=== PATIENT | female | born 1945 | race Caucasian/White ===

== ENCOUNTER 2018-10-11 18:21 | Emergency (ER) | payer MEDICARE ==
[2018-10-11 18:36] VITALS: BP 161/84
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
[2018-10-11 19:35] LABS: PLATELET COUNT, AUTOMATED 276 K/uL (150-450)
--- NOTE | 2018-10-11 20:54 | EKG ---
[place] [facility] [place] NAME: RAFAT RODRIGUEZ : [id number] MR: [id number] V: [id number] EXAM DATE: ORDERING PHYSICIAN: LEYDI DEGROOT TECHNOLOGIST: SHELLIE Mak Reason : Blood Pressure : / mmHG Vent. Rate : 070 BPM Atrial Rate : 070 BPM P-R Int : 206 ms QRS Dur : 096 ms QT Int : 402 ms P-R-T Axes : 072 -18 083 degrees QTc Int : 434 ms Artifact makes interpretation difficult - recommend repeat EKG Probable sinus rhythm with PVCs Left axis Abnormal ECG No previous ECGs available Confirmed by RUBIO ABEBE ([id number]) on 10/12/2018 3:14:17 AM Referred By: Confirmed By:RUBIO ABEBE
[2018-10-11] MEDS ORDERED: DILT-104 PO (21:11)
[2018-10-11] MEDS ORDERED: IRBE150T7 PO (21:11)
[2018-10-11] MEDS ORDERED: HALO5TAB17 PO (21:11)
[2018-10-11] MEDS ORDERED: ASPI-1471 PO (21:11)
[2018-10-11] MEDS ORDERED: SODCTAB PO (21:11)
[2018-10-11] MEDS ORDERED: OMEP-125 PO (21:11)
[2018-10-11] MEDS ORDERED: METO50TA19 PO (21:11)
[2018-10-11] MEDS ORDERED: CETI10CA8 PO (21:11)
[2018-10-12] MEDS ORDERED: OXYB5TAB86 PO (10:00)
[2018-10-12] MEDS ORDERED: CARB15DR72 OU (13:52)
[2018-10-12] MEDS ORDERED: CALC-852 PO (13:52)
[2018-10-12] MEDS ORDERED: MOMR ENA (13:52)
[2018-10-12] MEDS ORDERED: [UNRECOGNIZED DRUG - CODE] PO (13:52)
[2018-10-12] MEDS ORDERED: ACET500T68 PO (13:52)
== END 2018-10-11 21:31 ==
LOC: ER 18:44
DX: F20.0 Paranoid schizophrenia (principal); R94.31 Abnormal electrocardiogram [ECG] [EKG]
CPT/HCPCS: 36415; 80305; 81001; 83735; 84443; 85025; 93005; 99284; G0480; 80320; 80329; 82040; 82247; 82310; 82374; 82435; 82565; 82947; 84075; 84132; 84155; 84295; 84450; 84460; 84520

== ENCOUNTER 2018-10-11 21:19 | Inpatient (IN) | payer MEDICARE ==
[~2018-10-11] VITALS: Ht 167.6 cm; Wt 95.7 kg
[~2018-10-11 21:19] MED LIST: ASPI-1471 PO; CETI10CA8 PO; DILT-104 PO; HALO5TAB17 PO; IRBE150T7 PO; METO50TA19 PO; OMEP-125 PO; SODCTAB PO
[2018-10-11 23:06] VITALS: BP 138/90
[2018-10-12 06:47] VITALS: BP 132/84
[2018-10-12] MEDS ORDERED: CETIRIZINE HCL 10 MG TAB PO PRN (07:45)
[2018-10-12] MEDS: PANTOPRAZOLE SOD 20 MG TABEC PO SCH ×2 (08:22→09:00)
[2018-10-12] MEDS: DILTIAZEM CD 180 MG CAPCR PO SCH ×2 (08:23→21:10)
[2018-10-12] MEDS: SODIUM CHLORIDE 1 GR TAB PO SCH ×2 (08:25→21:10)
[2018-10-12] MEDS: HALOPERIDOL 5 MG TAB PO SCH (08:27)
[2018-10-12] MEDS ORDERED: IRBESARTAN 150 MG TAB PO SCH (09:00)
[2018-10-12] MEDS ORDERED: OXYB5TAB86 PO (10:00)
[2018-10-12] MEDS ORDERED: IBUPROFEN 600 MG TAB PO PRN (10:55)
[2018-10-12 11:03] VITALS: BP 128/90
[2018-10-12] MEDS ORDERED: CALC-852 PO (13:52)
[2018-10-12] MEDS ORDERED: MOMR ENA (13:52)
[2018-10-12] MEDS ORDERED: [UNRECOGNIZED DRUG - CODE] PO (13:52)
[2018-10-12] MEDS ORDERED: CARB15DR72 OU (13:52)
[2018-10-12] MEDS ORDERED: ACET500T68 PO (13:52)
[2018-10-12] MEDS: OXYBUTYNIN CHL 5 MG TAB PO SCH (14:00)
[2018-10-12] MEDS ORDERED: HALOPERIDOL 5 MG TAB PO SCH ×2 (14:00→21:00)
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
--- NOTE | 2018-10-12 18:33 | EKG ---
FACILITY: [facility] PATIENT NAME: RAFAT RODRIGUEZ : [id number] MR: [id number] V: [id number] EXAM DATE: ORDERING PHYSICIAN: REY FRANCISCO TECHNOLOGIST: JORDAN Mak Reason : Blood Pressure : / mmHG Vent. Rate : 058 BPM Atrial Rate : 058 BPM P-R Int : 206 ms QRS Dur : 102 ms QT Int : 442 ms P-R-T Axes : 074 066 086 degrees QTc Int : 433 ms Sinus bradycardia with premature ventricular complexes or fusion complexes Otherwise normal ECG When compared with ECG of 11-OCT-2018 20:45, Previous ECG has undetermined rhythm, needs review Confirmed by JANEE ZAVALETA ([id number]) on 10/12/2018 6:40:13 PM Referred By: Confirmed By:JANEE ZAVALETA
[2018-10-12] MEDS ORDERED: METOPROLOL SUCC XL 50 MG TABCR 50 MG TAB.ER.24H PO SCH ×2 (21:00)
[2018-10-12 22:59] VITALS: BP 132/80
[2018-10-13] MEDS ORDERED: POLYETHYLENE GLYCOL 17 GM PKT PO ONE (07:20)
[2018-10-13] MEDS: DILTIAZEM CD 180 MG CAPCR PO SCH (08:12)
[2018-10-13] MEDS: HALOPERIDOL 5 MG TAB PO SCH (08:13)
[2018-10-13] MEDS: OXYBUTYNIN CHL 5 MG TAB PO SCH (08:13)
[2018-10-13] MEDS: SODIUM CHLORIDE 1 GR TAB PO SCH (08:14)
[2018-10-13] MEDS: PANTOPRAZOLE SOD 20 MG TABEC PO SCH (08:14)
--- NOTE | 2018-10-13 09:26 | BHS Progress Note ---
BHS - Subjective Progress Notes Subjective "I wanted to stay an extra day to see how the bladder medication works. It works good. I've been on Haldol and it works perfect." Sleep sufficient, denies racing thoughts, AVH Denies depression, anxiety or anger, denies mood swings Denies urge for harm to self or others Suicidal Ideation: None Homicidal Ideation: None BHS - Objective Physical Exam Vital Signs Allergies Coded Allergies TAWNYA Inhibitors (Verified Allergy, Intermediate, 10/12/18) Penicillins (Verified Allergy, Intermediate, 10/12/18) Sulfa (Sulfonamide Antibiotics) (Verified Allergy, Intermediate, 10/12/18) canola oil (Verified Allergy, Intermediate, 10/12/18) levofloxacin (Verified Allergy, Intermediate, 10/12/18) lurasidone (Verified Allergy, Intermediate, 10/12/18) milk (Verified Allergy, Intermediate, 10/12/18) Uncoded Allergies ANTIHISTAMINES ( Allergy, Intermediate, 10/11/18) "STRONG ANTIHISTAMINES" Lab Current Medications Medications (Trade) Dose Ordered Sig/Maged Route PRN Reason Start Time Stop Time Status Last Admin Dose Admin Metoprolol Succinate (Toprol Xl(*) 50 Mg Tabcr (Or Equiv)) 50 mg DAILY@0000 PO 10/12/18 00:00 10/12/18 08:03 DC 10/12/18 00:00 Pantoprazole Sodium (Protonix (Or Equiv)) 20 mg QDAY PO 10/12/18 07:30 11/11/18 07:29 10/13/18 08:14 Diltiazem HCl (Cardizem Cd 180 Mg Capcr (Or Equiv)) 180 mg BID PO 10/12/18 09:00 11/11/18 08:59 10/13/18 08:12 Cetirizine HCl (zyrTEC 10 MG TAB (OR EQUIV)) 10 mg QDAY PRN PO ALLERGY SYMPTOMS 10/12/18 07:45 11/11/18 07:44 Metoprolol Succinate (Toprol Xl(*) 50 Mg Tabcr (Or Equiv)) 50 mg QHS PO 10/12/18 21:00 11/11/18 20:59 10/12/18 21:10 Sodium Chloride (Sodium Chloride 1 Gr Tab) 1 gm BID PO 10/12/18 09:00 11/11/18 08:59 1/19/19 08:14 Irbesartan (Avapro 150 Mg Tab (Or Equiv)) 150 mg QDAY PO 10/12/18 09:00 10/12/18 11:36 DC 10/12/18 08:24 Haloperidol (Haldol(*) 5 Mg Tab (Or Equiv)) 5 mg QHS PO 10/12/18 21:00 11/11/18 20:59 10/12/18 21:10 Haloperidol (Haldol(*) 5 Mg Tab (Or Equiv)) 2.5 mg QAM PO 10/12/18 09:00 11/11/18 08:59 10/13/18 08:13 Haloperidol (Haldol(*) 5 Mg Tab (Or Equiv)) 2.5 mg DAILY@1400 PO 10/12/18 14:00 11/11/18 13:59 10/12/18 14:00 Ibuprofen (Motrin (*) 600 Mg Tab (Or Equiv)) 600 mg Q6H PRN PO PAIN 10/12/18 10:55 11/11/18 10:54 10/12/18 11:28 Irbesartan (Avapro 150 Mg Tab (Or Equiv)) 150 mg QDAY@1100 PO 10/13/18 11:00 11/11/18 08:59 Oxybutynin Chloride (Ditropan (Or Equiv)) 5 mg DAILY PO 10/12/18 14:00 11/11/18 13:59 10/13/18 08:13 Polyethylene Glycol (Miralax 17 Gm Pkt (Or Equiv)) 17 gm ONCE ONCE PO 10/13/18 07:20 10/13/18 07:28 DC 10/13/18 07:48 Vital Signs Date Time Temp Pulse Resp B/P (MAP) Pulse Ox O2 Delivery O2 Flow Rate FiO2 10/12/18 22:59 98.5 93 15 132/80 (97) 94 Room Air S Assessment and Plan [id number] Encounter Date: Oct 13, 2018 [id number] Encounter Time: 09:22 Problems: (1) Paranoid schizophrenia Status: Chronic (2) Bladder spasm Status: Acute Condition Discharge to home Discharge medications per medication management Crisis line # provided, encourage use for worsening s/s Return to ER for worsening s/s, SI/BEATRIZ CHAVEZ SENIOR BUSINESS PROCESS ANALYST Oct 13, 2018 09:26
[2018-10-13 10:40] VITALS: BP 110/50
[2018-10-13] MEDS ORDERED: IRBESARTAN 150 MG TAB PO SCH (11:00)
--- NOTE | 2018-10-14 01:29 | ROMSA DISCHARGE ---
DATE OF ADMISSION: October 11, 2018 DATE OF DISCHARGE: October 13, 2018 ATTENDING PROVIDER SONIA Garcia FINAL DIAGNOSES PER DIAGNOSTIC AND STATISTICAL MANUAL OF MENTAL DISORDERS, FIFTH EDITION 1. Schizophrenia with recent mild exacerbation of psychosis. 2. Problems related to social stressors of recently relocating and ongoing delusional content. REASON FOR ADMISSION/BRIEF HISTORY This patient is a 73-year-old, , female with a long-standing history of schizophrenia who presented to the Emergency Department voluntarily verbalizing what appeared to be multiple solidified delusions of persecutory type. Patient with known history of schizophrenia and currently stabilized on Haldol, which she has taken for an unknown amount of time. Patient reported recently moving from [place] where she had lived for quite some time to the [facility]. She reports that she had some issues with "drug addicts" in [place] which were interfering with her life, and she had to leave that town. Patient has established primary care and psychiatric appointments upon relocating and secured a new [facility] apartment. She reports a good support system through her [employer], [facility], and did report a history previous inpatient psychiatric hospitalizations, up to five in the [place] area. Patient denies history of suicide attempts, although reports previous suicidal ideation. Patient was requesting a voluntary admission for some mild exacerbation of underlying psychotic symptoms. She was polite and cooperative with staff and throughout her stay. She describes some persecutory type delusional thoughts. Patient was continued on her previous medications and was stabilized with outpatient appointments established prior to her discharge. At the time of her discharge interview, she is denying depression, anger, or anxiety. She reports good response from her Haldol. She denies current symptoms of auditory or visual hallucinations or paranoia. She is denying suicidal or homicidal ideation. She has outpatient medical and psychiatric appointments that have been established, and she is appropriate for ongoing outpatient care. She is not considered a risk to herself or others at the time of discharge. PHYSICAL EXAMINATION Please see emergency room notes for physical exam. Vital signs at the time of admission included temperature of 97.9, pulse of 67, blood pressure 138/90, pulse oximetry 93% on room air. Vital signs at the time of discharge include temperature of 98.5, pulse of 93, respiratory rate 15, blood pressure 132/80, pulse oximetry 94% on room air. LABORATORY DATA CBC within normal limits. Chemistry panel within normal limits. Sodium is 130, which she reports chronic hyponatremia with prescribed supplements, chloride 95, AST slightly elevated at 90, ALT slightly elevated at 136, alkaline phosphatase 142. Urine screen within normal limits. Toxicology includes salicylate level of 22, acetaminophen level 10, serum alcohol level less than 10. Urine screen negative for opiates, barbiturates, tricyclics, phencyclidine, amphetamines, benzodiazepines, cocaine, and cannabinoids. MENTAL STATUS EXAMINATION GENERAL APPEARANCE, BEHAVIOR, AND ATTITUDE: Patient is calm, cooperative during her discharge interview. There are no periods of tearfulness. She was smiling and interacting well with team members at time of discharge interview. No psychomotor agitation or retardation. SPEECH: Regular rate, rhythm, volume, tone. MOOD: Euthymic. AFFECT: Minimally constricted, mood congruent. THOUGHT PROCESSES: Logical, goal directed. No loose associations or flight of ideas. THOUGHT CONTENT: Free of auditory or visual hallucinations, ideas of reference, thought broadcastings. No delusional content evident at time of discharge interview. Denies adamantly suicidal or homicidal ideation. SENSORIUM: Clear. COGNITION: Alert and oriented to person, place, time, situation. MEMORY: Immediate, recent, remote intact. INTELLIGENCE: Average based on interview. INSIGHT AND JUDGMENT: Considered intact. Patient agreeable with ongoing outpatient medication continuation with established primary care and psychiatric medications made prior to discharge. RESULTS OF TESTING The patient was seen in the Emergency Department during her behavioral health stay, reporting difficult urination and abdominal discomfort. They did a bladder scan which showed minimal urine and catheterized her which did not yield much residual urine volume. CT of the abdomen and pelvis was performed. There was dilation of the intra- and extrahepatic biliary ducts which may be related to the prior cholecystectomy. Adrenals, pancreas negative. There is a tiny cortical hypodensity lower pole of the left kidney which statistically represented a cyst, although it is too small to characterize. The bladder is mostly decompensated, not ideally evaluated. Patient is agreeable with ongoing outpatient medical care which has been established. CONSULTATIONS Please see emergency room documentation for consultation regarding abdominal pain. TREATMENT Patient participated in individual and group therapy. She was continued on her outpatient medications. She was calm, cooperative, and appropriate for ongoing outpatient care. She is denying suicidal or homicidal ideation. She is encouraged to use the crisis line should symptoms worsen or for suicidal ideation. She is to take medications only as prescribed. She is to abstain from alcohol and all illicit substances. She is encouraged to follow up with outpatient medical provider and psychiatric care followup which has been established prior to discharge. Patient was scheduled for mental health followup at [facility] with appointment set up prior to discharge. She is to return to the Emergency Room for suicidal or homicidal ideation. DISCHARGE MEDICATIONS 1. Avapro 150 mg one p.o. daily. 2. Haldol 2.5 mg one p.o. a.m. and at noon. 3. Haldol 5 mg one p.o. at bedtime. 4. Toprol XL 50 mg p.o. at bedtime. 5. Ditropan 5 mg one p.o. daily. 6. Cardizem 180 mg one p.o. b.i.d. 7. Zyrtec 10 mg one p.o. daily as needed for allergies. 8. Protonix 20 mg one p.o. daily. Patient agreeing to return to the Emergency Room for suicidal or homicidal ideation or worsening symptoms. Patient is competent and agreeable with the above discharge plan and verbalizes understanding of discharge treatment recommendations. [id number]
== END 2018-10-13 10:15 | disposition home or self-care (01) | DRG 885 ==
LOC: BHS 21:19
PROVIDERS: ADMIT Psychiatry & Neurology Psychiatry; ATTEND Psychiatry & Neurology Psychiatry
DX: F20.9 Schizophrenia, unspecified (principal); E87.1 Hypo-osmolality and hyponatremia; Z81.1 Family history of alcohol abuse and dependence; Z81.8 Family history of other mental and behavioral disorders; Z88.0 Allergy status to penicillin; Z88.2 Allergy status to sulfonamides; Z88.8 Allergy status to other drugs, medicaments and biological substances; Z91.011 Allergy to milk products; Z90.49 Acquired absence of other specified parts of digestive tract; Z62.819 Personal history of unspecified abuse in childhood
CPT/HCPCS: 36415; 80305; 80320; 80329; 81001; 82040; 82247; 82310; 82374; 82435; 82565; 82947; 83735; 84075; 84132; 84155; 84295; 84443; 84450; 84460; 84520; 85025; 93005; 99284

== ENCOUNTER 2018-10-12 08:36 | Emergency (ER) | payer MEDICARE ==
[2018-10-12 08:37] VITALS: BP 143/81
--- NOTE | 2018-10-12 08:58 | ER Report ---
History and Physical Time Seen By MD: 08:56 Hx. of Stated Complaint: ABD PAIN STARTED AT 0300, SENT FROM [facility] FOR EVAL HPI/ROS CHIEF COMPLAINT: Abdominal pain, referred from behavioral medicine HISTORY OF PRESENT ILLNESS: Patient is a 73-year-old female who was admitted for disorganized and paranoid thinking last evening. Please see the note from or specifics of that evaluation. Essentially patient states that she is being monitored by the [facility] and at times a minute typical for her to urinate. There was some concern on the floor this evening because when she complained of some abdominal discomfort that he felt a mass in her lower abdomen. They did a bladder scan which showed minimal urine and even into the catheterization which did not yield much urine volume. Because of the concerns for an abdominal mass she is referred to the emergency department for evaluation. REVIEW OF SYSTEMS: Respiratory: No cough, no dyspnea. Cardiovascular: No chest pain, no palpitations. Gastrointestinal: Abdominal discomfort : Difficulty urinating Musculoskeletal: No back pain. Allergies: Coded Allergies: TAWNYA Inhibitors (Verified Allergy, Intermediate, 10/12/18) Penicillins (Verified Allergy, Intermediate, 10/12/18) Sulfa (Sulfonamide Antibiotics) (Verified Allergy, Intermediate, 10/12/18) canola oil (Verified Allergy, Intermediate, 10/12/18) levofloxacin (Verified Allergy, Intermediate, 10/12/18) lurasidone (Verified Allergy, Intermediate, 10/12/18) milk (Verified Allergy, Intermediate, 10/12/18) Uncoded Allergies: ANTIHISTAMINES (Allergy, Intermediate, 10/11/18) "STRONG ANTIHISTAMINES" Home Meds Active Scripts Oxybutynin Chloride (OXYBUTYNIN CHLORIDE) 5 Mg Tablet, 5 MG PO QDAY, #30 TAB 0 Refills Prov:JACK STANLEY MD 10/12/18 Reported Medications Cetirizine Hcl (ZYRTEC) 10 Mg Capsule, 10 MG PO QDAY, CAPSULE 10/11/18 Aspirin (ASPIR 81) 81 Mg Tablet.dr, 81 MG PO QDAY, TAB 10/11/18 Sodium Chloride (SODIUM CHLORIDE) 1 Gm Tab, 1 GM PO BID, TAB 10/11/18 Haloperidol (HALOPERIDOL) 5 Mg Tablet, 5 MG PO QHS 10/11/18 Irbesartan (IRBESARTAN) 150 Mg Tablet, 150 MG PO QDAY 10/11/18 Diltiazem Hcl (CARTIA XT) 180 Mg Cap.er.24h, 180 MG PO BID 10/11/18 Omeprazole (OMEPRAZOLE) 20 Mg Capsule.dr, 1 CAP PO QDAY, CAP 10/11/18 Metoprolol Succinate (METOPROLOL SUCCINATE) 50 Mg Tab.er.24h, 1 TAB PO QHS, TAB 10/11/18 Past Medical/Surgical History Hypertension, schizophrenia Hx Smoking: No Smoking Status: Never Smoker Exposure to Second Hand Smoke?: No Hx Substance Use Disorder: No Hx Alcohol Use: No Constitutional Vital Sign - Last 24 Hours 10/12/18 10/12/18 10/12/18 10/12/18 08:37 09:15 09:30 09:45 Temp 97.9 Pulse 46 54 55 59 Resp 14 B/P (MAP) 143/81 Pulse Ox 95 94 91 92 O2 Delivery Room Air 10/12/18 10:00 Pulse 60 Pulse Ox 90 Physical Exam General Appearance: The patient is alert, has no immediate need for airway protection and no current signs of toxicity. Eyes: Pupils equal and round no injection. Respiratory: Chest is non tender, lungs are clear to auscultation. Cardiac: regular rate and rhythm Gastrointestinal: Abdomen is protuberant Musculoskeletal: Neck: Neck is supple and non tender. Extremities have full range of motion and are non tender. Psych : Patient cooperative Medical Decision Making EKG/Imaging Imaging EXAM DATE: ORDERING PHYSICIAN: JACK STANLEY TECHNOLOGIST: Location: [facility] Patient: Radha Zuniga : 1945 Visit/Account:[id number] Date of Sevice: 10/12/2018 CT ABDOMEN PELVIS W/ CON HISTORY: abdominal swelling, difficulty urinating TECHNIQUE: Following administration of IV contrast contiguous axial images acquired through the abdomen/pelvis. Coronal and sagittal reformatting also performed.Dose Lowering Technique One of the following dose optimization techniques was utilized in the performance of this exam: Automated exposure control; adjustment of the mA and/or kV according to the patient's size; or use of an iterative reconstruction technique. Specific details can be referenced in the facility's radiology CT exam operational policy. CONTRAST: 75 mL Isovue-370 COMPARISON: None. FINDINGS: Visualized lung bases: Negative. Hepatobiliary: There appears to been a cholecystectomy. There is dilatation of the intrahepatic and extrahepatic ducts . The common bile duct measures 8 mm at the head the pancreas. Spleen: Calcified granulomas Adrenals: Negative. Pancreas: Negative. Kidneys ureters or bladder: There is a tiny cortical hypodensity lower pole the left kidney which statistically represents a cyst although is too small to characterize. The bladder is mostly decompressed separate not ideally evaluated Genitalia: The uterus is dextroverted with a lobular contour which may be related to fibroids or other uterine masses GI: Surgical clips adjacent to the cecum likely related to prior appendectomy. There is a moderate amount of fecal material seen throughout colon which can be seen with constipation. Vessels/spaces/nodes: There shotty retroperitoneal lymph nodes Bones/soft tissues: There is a tiny umbilical hernia containing fat. There are spondylotic changes in the thoracolumbar spine Additional findings: None pertinent. IMPRESSION: There is dilatation of the intra and extrahepatic biliary ducts which may be related to the prior cholecystectomy. If patient has symptoms suggesting biliary obstruction and MRCP may be helpful Uterus has a lobular contour which may be related to fibroids or other uterine masses. If this is of clinical concern pelvic ultrasound recommended Moderate amount of fecal material throughout colon which can be seen with constipation Tiny umbilical hernia containing fat Shotty retroperitoneal lymph nodes Spondylotic changes of the thoracolumbar spine Report Dictated By: Renetta Rosenthal MD at 10/12/2018 9:25 AM Report E-Signed By: Renetta Rosenthal MD at 10/12/2018 9:33 AM WSN:[email or web address] ED Course/Re-evaluation ED Course 10/12/2018 9:00:44 am plan at this time will be contrast enhanced CT of the abdomen and pelvis. Decision to Disposition Date: Oct 12, 2018 Decision to Disposition Time: 09:59 Depart Departure Latest Vital Signs Vital Signs Date Time Temp Pulse Resp B/P (MAP) Pulse Ox O2 Delivery O2 Flow Rate FiO2 10/12/18 10:00 60 90 10/12/18 08:37 97.9 14 143/81 Room Air Impression: Primary Impression: Uterine fibroid Additional Impression: Bladder spasm Condition: Condition Unchanged Disposition: HOME OR SELF-CARE Referrals: ELI DOYLE MD Make a follow-up visit for evaluation of fever and fibroids New Scripts Oxybutynin Chloride (OXYBUTYNIN CHLORIDE) 5 Mg Tablet 5 MG PO QDAY, #30 TAB 0 Refills Prov: JACK STANLEY MD 10/12/18 Patient Instructions: Overactive Bladder (GEN), Uterine Fibroids (ED) Problem Qualifiers Primary Impression: Uterine fibroid Uterine leiomyoma location: unspecified location Qualified Codes: D25.9 - Leiomyoma of uterus, unspecified JACK STANLEY MD Oct 12, 2018 08:58
[2018-10-12] MEDS ORDERED: IOPAMIDOL 76% 100 ML INFUS BTL 100 ML ONE (09:02)
--- NOTE | 2018-10-12 09:41 | RADIOLOGY IMAGING REPORT ---
[place] [facility] [place] Radha Zuniga : 1945 MR: [id number] V: [id number] EXAM DATE: ORDERING PHYSICIAN: JACK STANLEY TECHNOLOGIST: Location: Patient: Radha Zuniga : 1945 Visit/Account:[id number] Date of Sevice: 10/12/2018 CT ABDOMEN PELVIS W/ CON HISTORY: abdominal swelling, difficulty urinating TECHNIQUE: Following administration of IV contrast contiguous axial images acquired through the abdom en/pelvis. Coronal and sagittal reformatting also performed.Dose Lowering Technique One of the following dose optimization techniques was utilized in the performance of this exam: Autom ated exposure control; adjustment of the mA and/or kV according to the patient's size; or use of an i terative reconstruction technique. Specific details can be referenced in the facility's radiology C T exam operational policy. CONTRAST: 75 mL Isovue-370 COMPARISON: None. FINDINGS: Visualized lung bases: Negative. Hepatobiliary: There appears to been a cholecystectomy. There is dilatation of the intrahepatic and extrahepatic ducts . The common bile duct measures 8 mm at the head the pancreas. Spleen: Calcified granulomas Adrenals: Negative. Pancreas: Negative. Kidneys ureters or bladder: There is a tiny cortical hypodensity lower pole the left kidney which sta tistically represents a cyst although is too small to characterize. The bladder is mostly decompress ed separate not ideally evaluated Genitalia: The uterus is dextroverted with a lobular contour which may be related to fibroids or oth er uterine masses GI: Surgical clips adjacent to the cecum likely related to prior appendectomy. There is a moderate amount of fecal material seen throughout colon which can be seen with constipation. Vessels/spaces/nodes: There shotty retroperitoneal lymph nodes Bones/soft tissues: There is a tiny umbilical hernia containing fat. There are spondylotic changes in the thoracolumbar spine Additional findings: None pertinent. IMPRESSION: There is dilatation of the intra and extrahepatic biliary ducts which may be related to the prior cho lecystectomy. If patient has symptoms suggesting biliary obstruction and MRCP may be helpful Uterus has a lobular contour which may be related to fibroids or other uterine masses. If this is of clinical concern pelvic ultrasound recommended Moderate amount of fecal material throughout colon which can be seen with constipation Tiny umbilical hernia containing fat Shotty retroperitoneal lymph nodes Spondylotic changes of the thoracolumbar spine Report Dictated By: Renetta Rosenthal MD at 10/12/2018 9:25 AM Report E-Signed By: Renetta Rosenthal MD at 10/12/2018 9:33 AM WSN:[email or web address]
[2018-10-12] MEDS ORDERED: OXYB5TAB86 PO (10:00)
[2018-10-12] MEDS ORDERED: CALC-852 PO (13:52)
[2018-10-12] MEDS ORDERED: MOMR ENA (13:52)
[2018-10-12] MEDS ORDERED: CARB15DR72 OU (13:52)
[2018-10-12] MEDS ORDERED: ACET500T68 PO (13:52)
[2018-10-12] MEDS ORDERED: [UNRECOGNIZED DRUG - CODE] PO (13:52)
== END 2018-10-12 10:11 ==
LOC: ER 09:01
DX: D25.9 Leiomyoma of uterus, unspecified (principal); N32.89 Other specified disorders of bladder
CPT/HCPCS: 74177; 99284; Q9967

== ENCOUNTER 2018-11-03 07:27 | Emergency (ER) | payer MEDICARE ==
[~2018-11-03 07:27] MED LIST changes: -LORA-1455 PO
--- NOTE | 2018-11-03 07:32 | ER Report ---
History and Physical Time Seen By MD: 07:32 HPI/ROS CHIEF COMPLAINT: Chest pressure HISTORY OF PRESENT ILLNESS: Patient is a 73-year-old female here with complaints of chest pressure since yesterday morning. Symptoms have been constant, nonradi ating, located in the midsternal distribution. Patient is anxious appearing and is a history of anxiety. Denies prior history of ACS. Denies productive cough. REVIEW OF SYSTEMS: Constitutional: No fever, no chills. Eyes: No discharge. ENT: No sore throat. Cardiovascular: + chest pressure no palpitations. Respiratory: No cough, no shortness of breath. Gastrointestinal: No abdominal pain, no vomiting. Genitourinary: No hematuria. Musculoskeletal: No back pain. Skin: No rashes. Neurological: No headache. Psychiatry: Anxious appearing Allergies: Coded Allergies: TAWNYA Inhibitors (Verified Allergy, Intermediate, 11/03/18) Penicillins (Verified Allergy, Intermediate, 11/03/18) Sulfa (Sulfonamide Antibiotics) (Verified Allergy, Intermediate, 11/03/18) canola oil (Verified Allergy, Intermediate, 11/03/18) levofloxacin (Verified Allergy, Intermediate, 11/03/18) lurasidone (Verified Allergy, Intermediate, 11/03/18) milk (Verified Allergy, Intermediate, 11/03/18) Uncoded Allergies: ANTIHISTAMINES (Allergy, Intermediate, 10/11/18) "STRONG ANTIHISTAMINES" Home Meds Active Scripts Lorazepam (ATIVAN) 0.5 Mg Tablet, 0.5 MG PO Q4-6H, #10 TAB Prov:CALLI CONTRERAS S DO 11/03/18 Reported Medications Acetaminophen (TYLENOL EXTRA STRENGTH) 500 Mg Tablet, 1000 MG PO BID, TAB Pt. states she takes 2 tabs QAM and QPM 10/12/18 Carboxymethylcellulose Sodium (REFRESH TEARS) 15 Ml Drops, 1-2 DROP OU PRN 10/12/18 Mometasone Furoate (NASONEX) 17 Gm [place], 17 GM JUANIS PRN, SPRAY 10/12/18 Multivitamins-Min/Fa/Ginkgo (ONE DAILY WOMEN 50 PLUS TAB) 1 Each Tablet, 1 EACH PO QDAY 10/12/18 Calcium Carbonate/Vitamin D3 (CALCIUM + VITAMIN D TABLET) 1 Each Tablet, 1 EACH PO QDAY 10/12/18 Cetirizine Hcl (ZYRTEC) 10 Mg Capsule, 1-2 TAB PO QDAY for prn, CAPSULE 10/11/18 Aspirin (ASPIR 81) 81 Mg Tablet.dr, 81 MG PO QDAY, TAB 10/11/18 Sodium Chloride (SODIUM CHLORIDE) 1 Gm Tab, 1 GM PO BID, TAB 10/11/18 Haloperidol (HALOPERIDOL) 5 Mg Tablet, 5 MG PO QHS PT. takes 1/2 a tab in the morning and afternoon. Takes a full tab at bedtime. 10/11/18 Irbesartan (IRBESARTAN) 150 Mg Tablet, 150 MG PO QDAY AVAPRO. TAKE DAILY AT 11AM 10/11/18 Diltiazem Hcl (CARTIA XT) 180 Mg Cap.er.24h, 180 MG PO BID 10/11/18 Omeprazole (OMEPRAZOLE) 20 Mg Capsule.dr, 1 CAP PO QDAY, CAP 10/11/18 Metoprolol Succinate (METOPROLOL SUCCINATE) 50 Mg Tab.er.24h, 1 TAB PO QHS, TAB 10/11/18 Discontinued Scripts Oxybutynin Chloride (OXYBUTYNIN CHLORIDE) 5 Mg Tablet, 5 MG PO QDAY, #30 TAB 0 Refills Prov:JACK STANLEY MD 10/12/18 Hx Smoking: No Smoking Status: Never Smoker Exposure to Second Hand Smoke?: No Hx Substance Use Disorder: No Hx Alcohol Use: No Constitutional Vital Sign - Last 24 Hours 11/03/18 11/03/18 11/03/18 11/03/18 07:27 07:31 07:32 07:40 Temp 98.1 Pulse 67 70 Resp 18 B/P (MAP) 147/71 (96) 147/71 150/83 (105) Pulse Ox 92 99 O2 Delivery Room Air Room Air 11/03/18 11/03/18 11/03/18 11/03/18 08:00 08:05 08:09 08:20 Pulse 61 66 Resp 13 B/P (MAP) 131/80 (97) 124/70 (88) Pulse Ox 93 O2 Delivery Room Air 11/03/18 11/03/18 11/03/18 11/03/18 08:35 08:40 08:45 09:20 Pulse 59 58 Resp 13 23 B/P (MAP) 119/72 (88) 139/71 (93) Pulse Ox 93 91 O2 Delivery Room Air Room Air 11/03/18 11/03/18 11/03/18 11/03/18 09:23 09:28 09:40 09:55 Pulse 62 69 66 Resp 12 19 17 B/P (MAP) 136/49 (78) Pulse Ox 91 94 94 O2 Delivery Room Air Room Air Room Air Physical Exam General Appearance: The patient is alert, has no immediate need for airway protection and no signs of toxicity. No acute distress anxious. Eyes: Pupils equal and round no pallor or injection. ENT, Mouth: Mucous membranes are moist. Respiratory: There are no retractions, lungs are clear to auscultation. Cardiovascular: Regular rate and rhythm. Gastrointestinal: Abdomen is soft and non tender, no masses, bowel sounds normal. Neurological: No focal neurological deficits Skin: Warm and dry, no rashes. Musculoskeletal: Neck is supple non tender. Extremities are nontender, nonswollen and have full range of motion. DIFFERENTIAL DIAGNOSIS: After history and physical exam differential diagnosis was considered for chest pain including but not limited to myocardial ischemia, pericarditis pulmonary embolus, chest wall pain, pleural inflammation and pulmonary infectious causes. Anxiety Medical Decision Making Data Points Result Diagram: 11/03/18 0724 11/03/18 0724 Laboratory Hematology Test 11/03/18 07:24 Red Blood Count 5.05 M/uL (4.17-5.56) Mean Corpuscular Volume 90.7 fL (80.0-96.0) Mean Corpuscular Hemoglobin 30.5 pg (26.0-33.0) Mean Corpuscular Hemoglobin Concent 33.6 g/dL (32.0-36.0) Red Cell Distribution Width 13.9 % (11.5-14.5) Mean Platelet Volume 8.6 fL (7.2-11.1) Neutrophils (%) (Auto) 54.4 % (39.4-72.5) Lymphocytes (%) (Auto) 31.9 % (17.6-49.6) Monocytes (%) (Auto) 8.8 % (4.1-12.4) Eosinophils (%) (Auto) 3.1 % (0.4-6.7) Basophils (%) (Auto) 1.8 % (0.3-1.4) Nucleated RBC Relative Count (auto) 0.0 /100WBC Neutrophils # (Auto) 2.7 K/uL (2.0-7.4) Lymphocytes # (Auto) 1.6 K/uL (1.3-3.6) Monocytes # (Auto) 0.4 K/uL (0.3-1.0) Eosinophils # (Auto) 0.2 K/uL (0.0-0.5) Basophils # (Auto) 0.1 K/uL (0.0-0.1) Nucleated RBC Absolute Count (auto) 0.00 K/uL Sodium Level 132 mmol/L (137-145) Potassium Level 4.2 mmol/L (3.5-5.0) Chloride Level 97 mmol/L (98-107) Carbon Dioxide Level 26 mmol/L (22-31) Blood Urea Nitrogen 13 mg/dl (7-18) Creatinine 0.80 mg/dl (0.52-1.04) Glomerular Filtration Rate Calc > 60.0 Random Glucose 97 mg/dl (75-110) Calcium Level 9.2 mg/dl (8.4-10.2) Total Bilirubin 0.7 mg/dl (0.2-1.3) Aspartate Amino Transf (AST/SGOT) 75 U/L (0-35) Alanine Aminotransferase (ALT/SGPT) 149 U/L (0-56) Alkaline Phosphatase 151 U/L (0-126) Troponin I < 0.012 ng/ml Total Protein 7.6 g/dl (6.3-8.2) Albumin 4.7 g/dl (3.5-5.0) Chemistry Test 11/03/18 07:24 White Blood Count 5.0 k/uL (4.5-11.0) Red Blood Count 5.05 M/uL (4.17-5.56) Hemoglobin 15.4 g/dL (12.0-16.0) Hematocrit 45.8 % (34.0-47.0) Mean Corpuscular Volume 90.7 fL (80.0-96.0) Mean Corpuscular Hemoglobin 30.5 pg (26.0-33.0) Mean Corpuscular Hemoglobin Concent 33.6 g/dL (32.0-36.0) Red Cell Distribution Width 13.9 % (11.5-14.5) Platelet Count 318 K/uL (150-450) Mean Platelet Volume 8.6 fL (7.2-11.1) Neutrophils (%) (Auto) 54.4 % (39.4-72.5) Lymphocytes (%) (Auto) 31.9 % (17.6-49.6) Monocytes (%) (Auto) 8.8 % (4.1-12.4) Eosinophils (%) (Auto) 3.1 % (0.4-6.7) Basophils (%) (Auto) 1.8 % (0.3-1.4) Nucleated RBC Relative Count (auto) 0.0 /100WBC Neutrophils # (Auto) 2.7 K/uL (2.0-7.4) Lymphocytes # (Auto) 1.6 K/uL (1.3-3.6) Monocytes # (Auto) 0.4 K/uL (0.3-1.0) Eosinophils # (Auto) 0.2 K/uL (0.0-0.5) Basophils # (Auto) 0.1 K/uL (0.0-0.1) Nucleated RBC Absolute Count (auto) 0.00 K/uL Glomerular Filtration Rate Calc > 60.0 Calcium Level 9.2 mg/dl (8.4-10.2) Total Bilirubin 0.7 mg/dl (0.2-1.3) Aspartate Amino Transf (AST/SGOT) 75 U/L (0-35) Alanine Aminotransferase (ALT/SGPT) 149 U/L (0-56) Alkaline Phosphatase 151 U/L (0-126) Troponin I < 0.012 ng/ml Total Protein 7.6 g/dl (6.3-8.2) Albumin 4.7 g/dl (3.5-5.0) EKG/Imaging EKG Interpretation PATIENT NAME: RADHA RODRIGUEZ : [id number] MR: [id number] V: [id number] EXAM DATE: ORDERING PHYSICIAN: CALLI CONTRERAS TECHNOLOGIST: ANGELINA Test Reason : CP Blood Pressure : / mmHG Vent. Rate : 070 BPM Atrial Rate : 070 BPM P-R Int : 222 ms QRS Dur : 102 ms QT Int : 428 ms P-R-T Axes : 083 -11 078 degrees QTc Int : 462 ms Sinus rhythm with 1st degree AV block It appears there may be one pacemaker spike Left axis deviation Nonspecific interventricular conduction delay Confirmed by RUBIO ABEBE ([id number]) on 11/03/2018 4:24:16 PM Imaging PATIENT NAME: Radha Rodriguez : 1945 MR: [id number] V: [id number] EXAM DATE: [id number] ORDERING PHYSICIAN: CALLI CONTRERAS TECHNOLOGIST: [place] [facility] [place] Radha [place] : 1945 Visit/Account:[id number] Date of Sevice: 11/03/2018 CHEST PA LAT Indication: Chest Pain Comparison: None. Findings: Lungs: In the left upper lobe, there is a ill-defined nodule that measures 1.6 cm. This projects between the posterior fifth and sixth rib space. Right lung is clear. Mediastinum/pulmonary vasculature: Heart size and pulmonary vasculature are normal. Bones/soft tissues: Normal. IMPRESSION: 1. Ill-defined 1.6 cm nodule left upper lobe. Recommend CT chest without contrast for further evaluation. 2. Otherwise clear lungs. [place] [facility] [place]: Radha Rodriguez : 1945 Visit/Account:[id number] Date of Sevice: 11/03/2018 CT CHEST W/O CONTRAST Indication: left lung nodule Comparison: Chest x-ray 07/03/2019 TECHNIQUE: Noncontrast CT thoracic inlet through the adrenal glands obtained. One of the following dose optimization techniques was utilized in the performance of this exam: automated exposure control; adjustment of the mA and/or kV according to the patient's size; or use of an iterative reconstruction technique. Specific details can be referenced in the facility's radiology CT exam operational policy. FINDINGS: Lungs: There is a 1.6 x 1.2 cm spiculated nodule left upper lobe, with adjacent pleural thickening. Remaining lung parenchyma is clear. Mediastinum / tanvi: Calcified left hilar lymph node is seen. The heart size is normal. Musculoskeletal / Body wall: Bones are unremarkable. Lower neck: Normal. Upper abdomen: There are postoperative changes from a cholecystectomy. Calcified granulomas in the spleen are seen. IMPRESSION: Left upper lobe 1.6 cm spiculated nodule. Different diagnosis includes postinflammatory scar and malignancy. Recommend CT-guided biopsy for further evaluation. ED Course/Re-evaluation ED Course Patient is a 73-year-old female here with complaints of chest pressure since yesterday morning. Symptoms had been constant since time of onset. Troponin one set was negative, EKG showed no acute ischemic findings. Chest x-ray showed an ill-defined mass in the left upper lobe prompting CT imaging which identified a spiculated mass. I discussed these findings with the patient and she reports a prior history of similar presentation which she did receive treatment for and does not wish to pursue treatment for in the future. I recommended discussing these findings with her PCP and she voiced understanding. Patient did receive a single dose of Ativan which completely resolved her symptoms. I did give her a prescription for by mouth Ativan at home and advised to follow-up with her PCP closely. Return precautions provided. Decision to Disposition Date: Nov 03, 2018 Decision to Disposition Time: 09:47 Depart Departure Latest Vital Signs Vital Signs Date Time Temp Pulse Resp B/P (MAP) Pulse Ox O2 Delivery O2 Flow Rate FiO2 11/03/18 09:55 66 17 94 Room Air 11/03/18 09:40 136/49 (78) 11/03/18 07:32 98.1 Impression: Primary Impression: Chest pressure Additional Impression: Lung nodule Condition: Improved Disposition: HOME OR SELF-CARE New Scripts Lorazepam (ATIVAN) 0.5 Mg Tablet 0.5 MG PO Q4-6H, #10 TAB Prov: CALLI CONTRERAS DO 11/03/18 Patient Instructions: Chest Pain (DC) Additional Instructions: Please follow-up with your family doctor in the next 24-48 hours. You were found to have an incidental lung nodule which will need to be further evaluated. Please discuss with her family doctor in order to arrange outpatient evaluation. Please see CT imaging report for further details. Please return promptly if you develop worsening chest pain, shortness breath, fevers, nausea, vomiting. You may take 0.5 mg of Ativan every 6 hours as needed for anxiety. Please combine with alcohol and due to a triathlon this medication as it may be sedating Problem Qualifiers CALLI CONTRERAS DO Nov 03, 2018 07:32
--- NOTE | 2018-11-03 07:51 | EKG ---
FACILITY: [facility] - [place] PATIENT NAME: RAFAT RODRIGUEZ : [id number] MR: [id number] V: [id number] EXAM DATE: ORDERING PHYSICIAN: CALLI CONTRERAS TECHNOLOGIST: ANGELINA Test Reason : CP Blood Pressure : / mmHG Vent. Rate : 070 BPM Atrial Rate : 070 BPM P-R Int : 222 ms QRS Dur : 102 ms QT Int : 428 ms P-R-T Axes : 083 -11 078 degrees QTc Int : 462 ms Sinus rhythm with 1st degree AV block It appears there may be one pacemaker spike Left axis deviation Nonspecific interventricular conduction delay Confirmed by RUBIO ABEBE ([id number]) on 11/03/2018 4:24:16 PM Referred By: BEN Confirmed By:RUBIO ABEBE
[2018-11-03] MEDS ORDERED: LORazepam 2 MG/ML VIAL IVP ONE (07:55)
[2018-11-03 08:16] LABS: PLATELET COUNT, AUTOMATED 318 K/uL (150-450)
--- NOTE | 2018-11-03 08:51 | RADIOLOGY IMAGING REPORT ---
FACILITY: [facility] - [place] PATIENT NAME: Radha Zuniga : 1945 MR: [id number] V: [id number] EXAM DATE: ORDERING PHYSICIAN: CALLI CONTRERAS TECHNOLOGIST: Location: [facility] Patient: Radha Zuniga : 1945 Visit/Account:[id number] Date of Sevice: 11/03/2018 CHEST PA LAT Indication: Chest Pain Comparison: None. Findings: Lungs: In the left upper lobe, there is a ill-defined nodule that measures 1.6 cm. This projects betw een the posterior fifth and sixth rib space. Right lung is clear. Mediastinum/pulmonary vasculature: Heart size and pulmonary vasculature are normal. Bones/soft tissues: Normal. IMPRESSION: 1. Ill-defined 1.6 cm nodule left upper lobe. Recommend CT chest without contrast for further evaluat ion. 2. Otherwise clear lungs. This was called by Dr. Olmedo to CALLI CONTRERAS on 11/03/2018 8:39 AM Report Dictated By: Jason Olmedo at 11/03/2018 8:39 AM Report E-Signed By: Jason Olmedo at 11/03/2018 8:49 AM WSN:[id number]
--- NOTE | 2018-11-03 09:35 | RADIOLOGY IMAGING REPORT ---
FACILITY: [facility] - [place] PATIENT NAME: Radha Zuniga : 1945 MR: [id number] V: [id number] EXAM DATE: ORDERING PHYSICIAN: CALLI CONTRERAS TECHNOLOGIST: Location: [facility] Patient: Radha Zuniga : 1945 Visit/Account:[id number] Date of Sevice: 11/03/2018 CT CHEST W/O CONTRAST Indication: left lung nodule Comparison: Chest x-ray 07/03/2019 TECHNIQUE: Noncontrast CT thoracic inlet through the adrenal glands obtained. One of the following d ose optimization techniques was utilized in the performance of this exam: automated exposure control; adjustment of the mA and/or kV according to the patient's size; or use of an iterative reconstructio n technique. Specific details can be referenced in the facility's radiology CT exam operational stacie cy. FINDINGS: Lungs: There is a 1.6 x 1.2 cm spiculated nodule left upper lobe, with adjacent pleural thickening. Remaining lung parenchyma is clear. Mediastinum / tanvi: Calcified left hilar lymph node is seen. The heart size is normal. Musculoskeletal / Body wall: Bones are unremarkable. Lower neck: Normal. Upper abdomen: There are postoperative changes from a cholecystectomy. Calcified granulomas in the s pleen are seen. IMPRESSION: Left upper lobe 1.6 cm spiculated nodule. Different diagnosis includes postinflammatory s car and malignancy. Recommend CT-guided biopsy for further evaluation. Report Dictated By: Jason Olmedo at 11/03/2018 9:27 AM Report E-Signed By: Jason Olmedo at 11/03/2018 9:31 AM WSN:[id number]
[2018-11-03 09:40] VITALS: BP 136/49
[2018-11-03] MEDS ORDERED: LORA-1455 PO (09:53)
== END 2018-11-03 10:12 | disposition home or self-care (01) ==
LOC: ER 07:34
DX: R07.89 Other chest pain (principal); R91.1 Solitary pulmonary nodule
CPT/HCPCS: 71046; 71250; 84484; 85025; 93005; 96374; 99284; J2060; 82040; 82247; 82310; 82374; 82435; 82565; 82947; 84075; 84132; 84155; 84295; 84450; 84460; 84520

== ENCOUNTER → 2018-11-03 | Outpatient (CLI) | payer MEDICARE ==
[~2018-11-03] MED LIST changes: +ACET500T68 PO; +CALC-852 PO; +CARB15DR72 OU; +LORA-1455 PO; +MOMR ENA; +OXYB5TAB86 PO; +[UNRECOGNIZED DRUG - CODE] PO
== END ==
LOC: AMB 07:16
PROVIDERS: ATTEND Nurse Practitioner
DX: R07.89 Other chest pain (principal)
CPT/HCPCS: A0425; A0427

== ENCOUNTER → 2018-11-09 | Outpatient (CLI) | payer MEDICARE ==
[~2018-11-09] MED LIST changes: +LORA-1455 PO
--- NOTE | 2018-11-12 22:54 | RT HOLTER TEST ---
FACILITY: [facility] PATIENT NAME: RAFAT RODRIGUEZ : [id number] MR: [id number] V: [id number] EXAM DATE: ORDERING PHYSICIAN: KISHA BOWDEN TECHNOLOGIST: MARCE Hook-up date: 2018-11-09 16:09:00 Duration: 47:49:00 Test Indications: CHEST PAIN Medications: CARIA [id number] QRS complexes [id number] Ventricular ectopics which represent 18 % of total QRS comp. 128 Supraventricular ectopics which represent <1 % of total QRS comp. * Paced QRS complexes which represent % of total QRS comp. VENTRICULAR ECTOPY 23581 Isolated 2564 Bigeminal Cycles 226 Couplets 3 Runs 9 Beats in Runs 3 Beats LONGEST at 93 BPM at 09:21:26 2018-11-10 3 Beats FASTEST at 129 BPM at 15:43:31 2018-11-10 SUPRAVENTRICULAR ECTOPY 126 Isolated 1 Couplets 0 Runs 0 Beats in Runs * Beats LONGEST at * BPM at :: -- * Beats FASTEST at * BPM at :: -- HEART RATES 46 MIN at 21:32:04 2018-11-09 72 AVG 118 MAX at 12:09:19 2018-11-10 LONGEST RR 2.000 secs at 21:17:51 2018-11-09 S-T LEVELS Channel 1 -12.800 mm MIN at 16:09:00 2018-11-09 -12.800 mm MAX at 16:09:00 2018-11-09 Channel 2 -12.800 mm MIN at 16:09:00 2018-11-09 -12.800 mm MAX at 16:09:00 2018-11-09 Channel 3 -12.800 mm MIN at 16:09:00 2018-11-09 -12.800 mm MAX at 16:09:00 2018-11-09 Sinus rhythym throughout study. Frequent PVC occuring in isolation, couplets and triplets. Infrequent supraventricular beats. Likely positive halter test. Confirmed by Junior Parikh ([id number]) on 11/12/2018 10:54:38 PM Referred By: Overread By: Junior Yang
== END ==
LOC: RESP 15:43
PROVIDERS: ATTEND Family Medicine
DX: R07.9 Chest pain, unspecified (principal)
CPT/HCPCS: 93225; 93226

== ENCOUNTER 2018-11-18 08:04 | Emergency (ER) | payer MEDICARE ==
--- NOTE | 2018-11-18 08:09 | ER Report ---
History and Physical Time Seen By MD: 08:09 HPI/ROS CHIEF COMPLAINT: Left sided chest pain HISTORY OF PRESENT ILLNESS: Patient is a 73-year-old female here with complaints of left-sided chest pain since 105 this morning. Patient reports that she has an echo tomorrow however was concerned because she developed chest pain which woke her from sleep which she describes as sharp, stabbing. Patient was seen previously in the emergency department and was identified at the left upper lobe opacity which the patient was aware of and had no interest in treating. I did recommend that she follows up with her PCP at that time to discuss treatment opt ions for further workup. She voiced understanding of this plan. REVIEW OF SYSTEMS: Constitutional: No fever, no chills. Eyes: No discharge. ENT: No sore throat. Cardiovascular: + left sided chest pain Respiratory: No cough, no shortness of breath. Gastrointestinal: No abdominal pain, no vomiting. Genitourinary: No hematuria. Musculoskeletal: No back pain. Skin: No rashes. Neurological: No headache. Allergies: Coded Allergies: TAWNYA Inhibitors (Verified Allergy, Intermediate, 11/03/18) Penicillins (Verified Allergy, Intermediate, 11/03/18) Sulfa (Sulfonamide Antibiotics) (Verified Allergy, Intermediate, 11/03/18) canola oil (Verified Allergy, Intermediate, 11/03/18) levofloxacin (Verified Allergy, Intermediate, 11/03/18) lurasidone (Verified Allergy, Intermediate, 11/03/18) milk (Verified Allergy, Intermediate, 11/03/18) Uncoded Allergies: ANTIHISTAMINES (Allergy, Intermediate, 10/11/18) "STRONG ANTIHISTAMINES" Home Meds Reported Medications Metoprolol Succinate (METOPROLOL SUCCINATE) 50 Mg Tab.er.24h, 1 TAB PO QDAY, TAB 11/19/18 Irbesartan (IRBESARTAN) 150 Mg Tablet, 150 MG PO QDAY 11/19/18 Diltiazem Hcl (CARTIA XT) 180 Mg Cap.er.24h, 180 MG PO 11/19/18 Diltiazem Hcl (CARTIA XT) 240 Mg Cap.er.24h, 240 MG PO 11/19/18 Acetaminophen (TYLENOL EXTRA STRENGTH) 500 Mg Tablet, 1000 MG PO BID, TAB Pt. states she takes 2 tabs QAM and QPM 10/12/18 Carboxymethylcellulose Sodium (REFRESH TEARS) 15 Ml Drops, 1-2 DROP OU PRN 10/12/18 Mometasone Furoate (NASONEX) 17 Gm [place], 17 GM JUANIS PRN, SPRAY 10/12/18 Multivitamins-Min/Fa/Ginkgo (ONE DAILY WOMEN 50 PLUS TAB) 1 Each Tablet, 1 EACH PO QDAY 10/12/18 Calcium Carbonate/Vitamin D3 (CALCIUM + VITAMIN D TABLET) 1 Each Tablet, 1 EACH PO QDAY 10/12/18 Cetirizine Hcl (ZYRTEC) 10 Mg Capsule, 1-2 TAB PO QDAY for prn, CAPSULE 10/11/18 Aspirin (ASPIR 81) 81 Mg Tablet.dr, 81 MG PO QDAY, TAB 10/11/18 Sodium Chloride (SODIUM CHLORIDE) 1 Gm Tab, 1 GM PO BID, TAB 10/11/18 Haloperidol (HALOPERIDOL) 5 Mg Tablet, 5 MG PO QHS PT. takes 1/2 a tab in the morning and afternoon. Takes a full tab at bedtime. 10/11/18 Omeprazole (OMEPRAZOLE) 20 Mg Capsule.dr, 1 CAP PO QDAY, CAP 10/11/18 Discontinued Reported Medications Irbesartan (IRBESARTAN) 150 Mg Tablet, 150 MG PO QDAY AVAPRO. TAKE DAILY AT 11AM 10/11/18 Diltiazem Hcl (CARTIA XT) 180 Mg Cap.er.24h, 180 MG PO BID 10/11/18 Metoprolol Succinate (METOPROLOL SUCCINATE) 50 Mg Tab.er.24h, 1 TAB PO QHS, TAB 10/11/18 Discontinued Scripts Lorazepam (ATIVAN) 0.5 Mg Tablet, 0.5 MG PO Q4-6H, #10 TAB Prov:CALLI CONTRERAS DO 11/03/18 Hx Smoking: No Smoking Status: Never Smoker Exposure to Second Hand Smoke?: No Hx Substance Use Disorder: No Hx Alcohol Use: No Constitutional Vital Sign - Last 24 Hours 11/18/18 11/18/18 11/18/18 11/18/18 08:07 08:09 08:15 08:19 Pulse 59 57 Resp 16 16 B/P (MAP) 152/94 152/94 (113) 137/81 (99) Pulse Ox 96 94 O2 Delivery Room Air 11/18/18 11/18/18 11/18/1819 08:24 08:44 08:45 09:00 Pulse 53 60 Resp 16 22 B/P (MAP) 139/73 (95) 141/81 (101) Pulse Ox 92 92 11/18/18 09:04 Pulse 49 Resp 11 Pulse Ox 93 Physical Exam General Appearance: The patient is alert, has no immediate need for airway protection and no signs of toxicity. NAD Eyes: Pupils equal and round no pallor or injection. ENT, Mouth: Mucous membranes are moist. Respiratory: There are no retractions, lungs are clear to auscultation. Cardiovascular: Regular rate and rhythm. [ ] Gastrointestinal: Abdomen is soft and non tender, no masses, bowel sounds normal. Neurological: No focal deficits Skin: Warm and dry, no rashes. Musculoskeletal: Neck is supple non tender. Extremities are nontender, nonswollen and have full range of motion. DIFFERENTIAL DIAGNOSIS: After history and physical exam differential diagnosis was considered for chest pain including but not limited to myocardial ischemia, pericarditis pulmonary embolus, chest wall pain, pleural inflammation and pulmonary infectious causes. Medical Decision Making Data Points Result Diagram: 11/18/18 0814 11/18/18 0814 Laboratory Hematology Test 11/18/18 08:14 Red Blood Count 5.06 M/uL (4.17-5.56) Mean Corpuscular Volume 91.5 fL (80.0-96.0) Mean Corpuscular Hemoglobin 30.6 pg (26.0-33.0) Mean Corpuscular Hemoglobin Concent 33.4 g/dL (32.0-36.0) Red Cell Distribution Width 13.7 % (11.5-14.5) Mean Platelet Volume 8.4 fL (7.2-11.1) Neutrophils (%) (Auto) 65.7 % (39.4-72.5) Lymphocytes (%) (Auto) 22.1 % (17.6-49.6) Monocytes (%) (Auto) 8.9 % (4.1-12.4) Eosinophils (%) (Auto) 2.0 % (0.4-6.7) Basophils (%) (Auto) 1.3 % (0.3-1.4) Nucleated RBC Relative Count (auto) 0.0 /100WBC Neutrophils # (Auto) 4.0 K/uL (2.0-7.4) Lymphocytes # (Auto) 1.4 K/uL (1.3-3.6) Monocytes # (Auto) 0.5 K/uL (0.3-1.0) Eosinophils # (Auto) 0.1 K/uL (0.0-0.5) Basophils # (Auto) 0.1 K/uL (0.0-0.1) Nucleated RBC Absolute Count (auto) 0.00 K/uL Sodium Level 131 mmol/L (137-145) Potassium Level 3.8 mmol/L (3.5-5.0) Chloride Level 96 mmol/L (98-107) Carbon Dioxide Level 25 mmol/L (22-31) Blood Urea Nitrogen 14 mg/dl (7-18) Creatinine 0.80 mg/dl (0.52-1.04) Glomerular Filtration Rate Calc > 60.0 Random Glucose 98 mg/dl (75-110) Calcium Level 9.2 mg/dl (8.4-10.2) Total Bilirubin 0.5 mg/dl (0.2-1.3) Aspartate Amino Transf (AST/SGOT) 34 U/L (0-35) Alanine Aminotransferase (ALT/SGPT) 61 U/L (0-56) Alkaline Phosphatase 127 U/L (0-126) Troponin I < 0.012 ng/ml B-Type Natriuretic Peptide 249 pg/ml (0-100) Total Protein 7.5 g/dl (6.3-8.2) Albumin 4.6 g/dl (3.5-5.0) Chemistry Test 11/18/18 08:14 White Blood Count 6.1 k/uL (4.5-11.0) Red Blood Count 5.06 M/uL (4.17-5.56) Hemoglobin 15.4 g/dL (12.0-16.0) Hematocrit 46.2 % (34.0-47.0) Mean Corpuscular Volume 91.5 fL (80.0-96.0) Mean Corpuscular Hemoglobin 30.6 pg (26.0-33.0) Mean Corpuscular Hemoglobin Concent 33.4 g/dL (32.0-36.0) Red Cell Distribution Width 13.7 % (11.5-14.5) Platelet Count 295 K/uL (150-450) Mean Platelet Volume 8.4 fL (7.2-11.1) Neutrophils (%) (Auto) 65.7 % (39.4-72.5) Lymphocytes (%) (Auto) 22.1 % (17.6-49.6) Monocytes (%) (Auto) 8.9 % (4.1-12.4) Eosinophils (%) (Auto) 2.0 % (0.4-6.7) Basophils (%) (Auto) 1.3 % (0.3-1.4) Nucleated RBC Relative Count (auto) 0.0 /100WBC Neutrophils # (Auto) 4.0 K/uL (2.0-7.4) Lymphocytes # (Auto) 1.4 K/uL (1.3-3.6) Monocytes # (Auto) 0.5 K/uL (0.3-1.0) Eosinophils # (Auto) 0.1 K/uL (0.0-0.5) Basophils # (Auto) 0.1 K/uL (0.0-0.1) Nucleated RBC Absolute Count (auto) 0.00 K/uL Glomerular Filtration Rate Calc > 60.0 Calcium Level 9.2 mg/dl (8.4-10.2) Total Bilirubin 0.5 mg/dl (0.2-1.3) Aspartate Amino Transf (AST/SGOT) 34 U/L (0-35) Alanine Aminotransferase (ALT/SGPT) 61 U/L (0-56) Alkaline Phosphatase 127 U/L (0-126) Troponin I < 0.012 ng/ml B-Type Natriuretic Peptide 249 pg/ml (0-100) Total Protein 7.5 g/dl (6.3-8.2) Albumin 4.6 g/dl (3.5-5.0) EKG/Imaging EKG Interpretation PATIENT NAME: RADHA RODRIGUEZ : [id number] MR: [id number] V: [id number] EXAM DATE: ORDERING PHYSICIAN: CALLI CONTRERAS TECHNOLOGIST: JORDAN Mak Reason : CP Blood Pressure : / mmHG Vent. Rate : 076 BPM Atrial Rate : 076 BPM P-R Int : 196 ms QRS Dur : 100 ms QT Int : 398 ms P-R-T Axes : 084 -20 076 degrees QTc Int : 447 ms Sinus rhythm with frequent premature ventricular complexes Otherwise normal ECG When compared with ECG of 03-NOV-2018 07:27, premature ventricular complexes are now present Confirmed by Junior Parikh ([id number]) on 11/18/2018 2:34:36 PM Referred By: BEN Confirmed By:Junior Yang [facility] PATIENT NAME: Radha Rodriguez : 1945 MR: [id number] V: [id number] EXAM DATE: ORDERING PHYSICIAN: CALLI CONTRERAS TECHNOLOGIST: Location: [facility] - [place] Patient: Radha Rodriguez : 1945 Visit/Account:[id number] Date of Sevice: 11/18/2018 CHEST PA LAT HISTORY: Chest pain. COMPARISON: Chest CT and chest x-ray dated 11/03/2018. FINDINGS: Lines/tubes: None. Lungs/pleura: Stable nodular opacity in the left upper lobe. Heart: Negative. Mediastinum: Calcified left hilar lymph node. Bony structures/body wall: Negative. IMPRESSION: 1. No acute cardiopulmonary process. 2. Stable nodular opacity in the left upper lobe. This was described on the recent chest CT and could be malignant. ED Course/Re-evaluation ED Course Patient is a 73-year-old female here with complaints of left-sided chest pain which started approximately 105 this morning. EKG showed no ischemic changes. Chest x-ray was clear. Troponin one set was completed and was negative, due to timing, 2nd set was unnecessary. I discussed these findings with the patient she was understanding. Recommend close PCP follow-up. Return precautions were provided. Decision to Disposition Date: Nov 18, 2018 Decision to Disposition Time: 09:05 Depart Departure Latest Vital Signs Vital Signs Date Time Temp Pulse Resp B/P (MAP) Pulse Ox O2 Delivery O2 Flow Rate FiO2 11/18/18 09:04 49 11 93 11/18/18 09:00 141/81 (101) 11/18/18 08:07 Room Air Impression: Primary Impression: Chest pain Condition: Improved Disposition: HOME OR SELF-CARE Patient Instructions: Chest Pain (DC) Additional Instructions: Please follow up closely with her family doctor. Your cardiac enzyme was found be negative. You had a left upper lobe opacity as we had discussed last time that you are treated here. Please follow-up to discuss with your family doctor. Please go to your scheduled echo tomorrow. Please return if you develop worsening chest pain, shortness breath, fevers or chills. CALLI CONTRERAS DO Nov 18, 2018 08:09
--- NOTE | 2018-11-18 08:24 | EKG ---
FACILITY: [facility] PATIENT NAME: RAFAT RODRIGUEZ : [id number] MR: [id number] V: [id number] EXAM DATE: ORDERING PHYSICIAN: CALLI CONTRERAS TECHNOLOGIST: JORDAN Mak Reason : CP Blood Pressure : / mmHG Vent. Rate : 076 BPM Atrial Rate : 076 BPM P-R Int : 196 ms QRS Dur : 100 ms QT Int : 398 ms P-R-T Axes : 084 -20 076 degrees QTc Int : 447 ms Sinus rhythm with frequent premature ventricular complexes Otherwise normal ECG When compared with ECG of 03-NOV-2018 07:27, premature ventricular complexes are now present Confirmed by Junior Parikh ([id number]) on 11/18/2018 2:34:36 PM Referred By: BEN Confirmed By:Junior Yang
[2018-11-18 08:28] LABS: PLATELET COUNT, AUTOMATED 295 K/uL (150-450)
--- NOTE | 2018-11-18 08:48 | RADIOLOGY IMAGING REPORT ---
[place] [facility] [place] NAME: Radha Zuniga : 1945 MR: [id number] V: [id number] EXAM DATE: ORDERING PHYSICIAN: CALLI CONTRERAS TECHNOLOGIST: Location: [facility] - [place] Patient: Radha Zuniga : 1945 Visit/Account:[id number] Date of Sevice: 11/18/2018 CHEST PA LAT HISTORY: Chest pain. COMPARISON: Chest CT and chest x-ray dated 11/03/2018. FINDINGS: Lines/tubes: None. Lungs/pleura: Stable nodular opacity in the left upper lobe. Heart: Negative. Mediastinum: Calcified left hilar lymph node. Bony structures/body wall: Negative. IMPRESSION: 1. No acute cardiopulmonary process. 2. Stable nodular opacity in the left upper lobe. This was described on the recent chest CT and could be malignant. Report Dictated By: Lucio Sorenson MD at 11/18/2018 8:42 AM Report E-Signed By: Lucio Sorenson MD at 11/18/2018 8:44 AM WSN:[id number]
[2018-11-18 09:00] VITALS: BP 141/81
[2018-11-19] MEDS ORDERED: DILT-106 PO (17:29)
[2018-11-19] MEDS ORDERED: DILT-104 PO (17:29)
[2018-11-19] MEDS ORDERED: IRBE150T7 PO (17:29)
[2018-11-19] MEDS ORDERED: METO50TA19 PO (17:29)
== END 2018-11-18 09:19 | disposition home or self-care (01) ==
LOC: ER 08:26
DX: R07.89 Other chest pain (principal)
CPT/HCPCS: 71046; 82040; 82247; 82310; 82374; 82435; 82565; 82947; 83880; 84075; 84132; 84155; 84295; 84450; 84460; 84484; 84520; 85025; 93005; 99284

== ENCOUNTER → 2018-11-19 | Outpatient (CLI) | payer MEDICARE ==
[~2018-11-19] MED LIST changes: +DILT-106 PO
== END ==
LOC: US 01:11
PROVIDERS: ATTEND Family Medicine
DX: I34.0 Nonrheumatic mitral (valve) insufficiency (principal)
CPT/HCPCS: 93306

== ENCOUNTER 2018-12-03 16:14 | Emergency (ER) | payer MEDICARE ==
[2018-12-03 16:22] VITALS: BP 204/107
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
== END 2018-12-03 18:06 | disposition home or self-care (01) ==
LOC: ER 16:27
DX: R33.9 Retention of urine, unspecified (principal)
CPT/HCPCS: 80305; 81001; 99283; A4353

== ENCOUNTER → 2019-02-08 | Outpatient (CLI) | payer MEDICARE ==
--- NOTE | 2019-02-08 13:24 | RADIOLOGY IMAGING REPORT ---
FACILITY: [facility] PATIENT NAME: Radha Zuniga : 1945 MR: [id number] V: [id number] EXAM DATE: ORDERING PHYSICIAN: ALFREDA MEJIA TECHNOLOGIST: Location: [facility] - [place] Patient: Radha Zuniga : 1945 Visit/Account:[id number] Date of Sevice: 02/08/2019 Exam type: CHEST PA LAT History: Bilateral lower extremity swelling, hypertension, shortness of breath Comparison: November 18, [address] of the chest favoring 2018. Findings: Irregular lesion is again seen projecting over the left upper lung field's was present on a recent CT the chest and is concerning for malignancy. Tissue diagnosis or PET/CT is recommended. No other ar eas of pulmonary consolidation are identified. There is a calcified left hilar lymph node. The card iac silhouette is normal in size. There are spondylotic changes of the thoracic spine. IMPRESSION: 1. Irregular lesion in the left upper lung field is again seen and is concerning for malignancy. Ti ssue diagnosis or PET/CT is recommended Report Dictated By: Renetta Rosenthal MD at 02/08/2019 1:17 PM Report E-Signed By: Renetta Rosenthal MD at 02/08/2019 1:20 PM WSN:[id number]
== END ==
LOC: RAD 11:04
PROVIDERS: ATTEND Family Medicine
DX: R91.8 Other nonspecific abnormal finding of lung field (principal)
CPT/HCPCS: 71046

== ENCOUNTER 2019-04-08 16:33 | Emergency (ER) | payer MEDICARE ==
[~2019-04-08 16:33] MED LIST changes: -OMEP-125 PO; +OMEP-126 PO
--- NOTE | 2019-04-08 16:51 | ER Report ---
History and Physical Time Seen By MD: 16:47 HPI/ROS CHIEF COMPLAINT: Paranoid schizophrenia HISTORY OF PRESENT ILLNESS: 74-year-old female comes in the emergency department today stating that a bunch of drug abusers from [place] trying to have her killed. She states that they have been tracking her location through covert [employer] operatives and high technology that is been furnished from [facility]. Patient states that they're trying to find her some baking killer. Patient denies being suicidal but does say that she would kill her she found them she is alert and oriented 4 patient states that she has had a long history of psychiat neptali issues but she hasn't had to be seen for a while. Patient denies any chest pain shortness of breath nausea vomiting diarrhea fever chills or additional complaints noted REVIEW OF SYSTEMS: Respiratory: No cough, no dyspnea. Cardiovascular: No chest pain, no palpitations. Gastrointestinal: No vomiting, no abdominal pain. Musculoskeletal: No back pain. Remainder of the 14 system rev: Yes Allergies: Coded Allergies: TAWNYA Inhibitors (Verified Allergy, Intermediate, 04/08/19) Penicillins (Verified Allergy, Intermediate, 04/08/19) Sulfa (Sulfonamide Antibiotics) (Verified Allergy, Intermediate, 04/08/19) canola oil (Verified Allergy, Intermediate, 04/08/19) levofloxacin (Verified Allergy, Intermediate, 04/08/19) lurasidone (Verified Allergy, Intermediate, 04/08/19) milk (Verified Allergy, Intermediate, 04/08/19) Uncoded Allergies: ANTIHISTAMINES (Allergy, Intermediate, 10/11/18) "STRONG ANTIHISTAMINES" Home Meds Reported Medications Metoprolol Succinate (METOPROLOL SUCCINATE) 50 Mg Tab.er.24h, 1 TAB PO QDAY, TAB 11/19/18 Irbesartan (IRBESARTAN) 150 Mg Tablet, 150 MG PO QDAY 11/19/18 Diltiazem Hcl (CARTIA XT) 180 Mg Cap.er.24h, 180 MG PO QHS 11/19/18 Diltiazem Hcl (CARTIA XT) 240 Mg Cap.er.24h, 240 MG PO QAM 11/19/18 Acetaminophen (TYLENOL EXTRA STRENGTH) 500 Mg Tablet, 1000 MG PO BID, TAB Pt. states she takes 2 tabs QAM and QPM 10/12/18 Carboxymethylcellulose Sodium (REFRESH TEARS) 15 Ml Drops, 1-2 DROP OU PRN 10/12/18 Multivitamins-Min/Fa/Ginkgo (ONE DAILY WOMEN 50 PLUS TAB) 1 Each Tablet, 1 EACH PO QDAY 10/12/18 Calcium Carbonate/Vitamin D3 (CALCIUM + VITAMIN D TABLET) 1 Each Tablet, 1 EACH PO QDAY 10/12/18 Cetirizine Hcl (ZYRTEC) 10 Mg Capsule, 1-2 TAB PO QDAY for prn, CAPSULE 10/11/18 Aspirin (ASPIR 81) 81 Mg Tablet.dr, 81 MG PO QDAY, TAB 10/11/18 Sodium Chloride (SODIUM CHLORIDE) 1 Gm Tab, 1 GM PO BID, TAB 10/11/18 Haloperidol (HALOPERIDOL) 5 Mg Tablet, 5 MG PO QHS PT. takes 1/2 a tab in the morning and afternoon. Takes a full tab at bedtime. 10/11/18 Omeprazole (OMEPRAZOLE) 20 Mg Capsule.dr, 2 CAP PO QDAY, CAP 10/11/18 Discontinued Reported Medications Mometasone Furoate (NASONEX) 17 Gm [place], 17 GM JUANIS PRN, SPRAY 10/12/18 Reviewed Nurses Notes: Yes Old Medical Records Reviewed: Yes Hx Smoking: No Smoking Status: Never Smoker Exposure to Second Hand Smoke?: No Hx Substance Use Disorder: No Hx Alcohol Use: No Constitutional Vital Sign - Last 24 Hours 04/08/19 16:51 Temp 98.8 Pulse 66 Resp 18 B/P (MAP) 197/93 Pulse Ox 95 O2 Delivery Room Air Physical Exam General Appearance: The patient is alert, has no immediate need for airway protection and no current signs of toxicity. [ ] Eyes: Pupils equal and round no injection. Respiratory: Chest is non tender, lungs are clear to auscultation. Cardiac: regular rate and rhythm [ ] Gastrointestinal: Abdomen is soft and non tender, no masses, bowel sounds normal . Musculoskeletal: Neck: Neck is supple and non tender. Extremities have full range of motion and are non tender. Skin: No rashes or lesions. Psychiatric examination patient with paranoid schizophrenia delusions primarily auditorium delusions of persecution DIFFERENTIAL DIAGNOSIS: After history and physical exam differential diagnosis was considered for paranoid schizophrenia Medical Decision Making Data Points Result Diagram: 04/08/19 1705 04/08/19 170 Laboratory Hematology Test 04/08/19 17:05 White Blood Count 6.8 k/uL (4.5-11.0) Red Blood Count 4.41 M/uL (4.17-5.56) Hemoglobin 13.9 g/dL (12.0-16.0) Hematocrit 40.5 % (34.0-47.0) Mean Corpuscular Volume 91.9 fL (80.0-96.0) Mean Corpuscular Hemoglobin 31.4 pg (26.0-33.0) Mean Corpuscular Hemoglobin Concent 34.2 g/dL (32.0-36.0) Red Cell Distribution Width 12.9 % (11.5-14.5) Platelet Count 288 K/uL (150-450) Mean Platelet Volume 7.5 fL (7.2-11.1) Neutrophils (%) (Auto) 55.5 % (39.4-72.5) Lymphocytes (%) (Auto) 32.0 % (17.6-49.6) Monocytes (%) (Auto) 8.0 % (4.1-12.4) Eosinophils (%) (Auto) 3.1 % (0.4-6.7) Basophils (%) (Auto) 1.4 % (0.3-1.4) Nucleated RBC Relative Count (auto) 0.0 /100WBC Neutrophils # (Auto) 3.8 K/uL (2.0-7.4) Lymphocytes # (Auto) 2.2 K/uL (1.3-3.6) Monocytes # (Auto) 0.5 K/uL (0.3-1.0) Eosinophils # (Auto) 0.2 K/uL (0.0-0.5) Basophils # (Auto) 0.1 K/uL (0.0-0.1) Nucleated RBC Absolute Count (auto) 0.00 K/uL Chemistry Test 04/08/19 17:05 Sodium Level 126 mmol/L (137-145) Potassium Level 3.8 mmol/L (3.5-5.0) Chloride Level 90 mmol/L (98-107) Carbon Dioxide Level 23 mmol/L (22-31) Blood Urea Nitrogen 11 mg/dl (7-18) Creatinine 0.70 mg/dl (0.52-1.04) Glomerular Filtration Rate Calc > 60.0 Random Glucose 100 mg/dl (75-110) Calcium Level 8.7 mg/dl (8.4-10.2) Magnesium Level 1.7 mg/dl (1.7-2.2) Total Bilirubin 0.4 mg/dl (0.2-1.3) Aspartate Amino Transf (AST/SGOT) 23 U/L (0-35) Alanine Aminotransferase (ALT/SGPT) 34 U/L (0-56) Alkaline Phosphatase 108 U/L (0-126) Total Protein 6.5 g/dl (6.3-8.2) Albumin 3.9 g/dl (3.5-5.0) Toxicology Test 04/08/19 17:05 Salicylates Level 64 mg/L Salicylate Last Dose Date unk Acetaminophen Level < 10 ug/ml Serum Alcohol < 10 mg/dl ED Course/Re-evaluation ED Course ED clinical course 84-year-old female with paranoid schizophrenia believing that there is a attempt on her life by operatives of the [employer] and utilization of 1 time [employer] system through bunch of drug dealers she'll be admitted to the hospital with a diagnosis of paranoid schizophrenia Decision to Disposition Date: Apr 08, 2019 Decision to Disposition Time: 17:43 Depart Departure Latest Vital Signs Vital Signs Date Time Temp Pulse Resp B/P (MAP) Pulse Ox O2 Delivery O2 Flow Rate FiO2 04/08/19 16:51 98.8 66 18 197/93 95 Room Air Impression: Primary Impression: Paranoid schizophrenia Condition: Improved Disposition: XFER TO [facility] Referrals: ALFREDA MEJIA MD (PCP) SRAVANI ZEPEDA MD Apr 08, 2019 16:51
[2019-04-08 17:15] LABS: PLATELET COUNT, AUTOMATED 288 K/uL (150-450)
[2019-04-08 17:30] VITALS: BP 166/84
[2019-04-08] MEDS ORDERED: NS(*) 0.9% 1000 ML BAG 1,000 ML IV ONE (17:45)
[2019-04-08] MEDS ORDERED: DILTIAZEM CD 180 MG CAPCR PO ONE (18:20)
[2019-04-09] MEDS ORDERED: MENT7.5L3 MM (11:18)
[2019-04-09] MEDS ORDERED: OXYM30MI5 NS (11:20)
== END 2019-04-08 19:20 ==
LOC: ER 17:30
DX: F20.0 Paranoid schizophrenia (principal); Z79.82 Long term (current) use of aspirin
CPT/HCPCS: 36415; 80305; 81001; 81025; 83735; 84443; 85025; 96360; 99284; A9270; G0480; J7030; 80320; 80329; 82040; 82247; 82310; 82374; 82435; 82565; 82947; 84075; 84132; 84155; 84295; 84450; 84460; 84520

== ENCOUNTER 2019-04-08 18:08 | Inpatient (IN) | payer MEDICARE ==
[~2019-04-08] VITALS: Ht 162.6 cm; Wt 83.9 kg
[2019-04-08] MEDS ORDERED: ACETAMINOPHEN 325 MG TAB PO PRN (18:20)
[2019-04-08] MEDS ORDERED: MAG HYD/AL HYD/SIMETH 30ML UDC PO PRN (18:20)
[2019-04-08 20:50] VITALS: BP 194/95
[2019-04-08] MEDS ORDERED: EUCALYPTUS/MENTHOL LOZ MM PRN (22:10)
[2019-04-08] MEDS ORDERED: HYPROMELLOSE 0.4% LUB 15ML BTL OU PRN (22:20)
[2019-04-08] MEDS ORDERED: SALINE 0.65% NAS SPR 44 ML BTL PRN (22:30)
[2019-04-08] MEDS ORDERED: HALOPERIDOL 5 MG TAB PO SCH (23:00)
[2019-04-08] MEDS ORDERED: IRBESARTAN 150 MG TAB PO SCH (23:00)
[2019-04-09 06:20] VITALS: BP 169/93
[2019-04-09] MEDS: CETIRIZINE HCL 10 MG TAB PO SCH ×2 (08:16→12:53)
[2019-04-09] MEDS: SODIUM CHLORIDE 1 GR TAB PO SCH ×2 (08:16→12:52)
[2019-04-09] MEDS: ACETAMINOPHEN 500 MG TAB PO SCH ×2 (08:16→12:52)
[2019-04-09] MEDS: ASPIRIN 81 MG ENTERIC COATED PO SCH ×2 (08:16→12:52)
[2019-04-09] MEDS ORDERED: DILTIAZEM CD 120 MG CAPCR PO SCH (09:00)
[2019-04-09] MEDS ORDERED: MULTIVITAMINS TAB PO SCH (09:00)
[2019-04-09] MEDS ORDERED: HALOPERIDOL 5 MG TAB PO SCH (09:00)
[2019-04-09] MEDS ORDERED: CALCIUM CARBONATE/VITAMIN D3 PO SCH (09:00)
[2019-04-09] MEDS ORDERED: MENT7.5L3 MM (11:18)
[2019-04-09] MEDS ORDERED: OXYM30MI5 NS (11:20)
[2019-04-09] MEDS ORDERED: PANTOPRAZOLE SOD 40 MG TABEC PO SCH (12:00)
[2019-04-09] MEDS ORDERED: METOPROLOL SUCC XL 50 MG TABCR 50 MG TAB.ER.24H PO SCH (12:00)
[2019-04-09] MEDS ORDERED: DILTIAZEM CD 180 MG CAPCR PO SCH (17:00)
--- NOTE | 2019-04-10 13:42 | SCHAAF H&P ---
HISTORY AND PHYSICAL/DISCHARGE SUMMARY Patient noted to leave within 24 hours of admission. DATE OF ADMISSION: April 08, 2019 DATE OF DISCHARGE: April 09, 2019 ATTENDING PHYSICIAN Giuseppe Jin MD Patient was seen in the a.m. of April 09, 2019 at approximately 0900 hours for note concerning this dictation. 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 REASON FOR ADMISSION This is a very pleasant 74-year-old female who suffers from underlying psychotic disorder, which is longstanding in nature. Patient initially presenting to the Behavioral Health Unit here in September 2018 after coming to town from [place]. Patient has since taken up residence after discharge on October 13, 2018 in the [facility] and overall is doing well with keeping up with her outpatient appointments and attending to her activities of daily living. Patient presents to the emergency room on April 08, 2019 with an exacerbation of paranoia related to the underlying fixed delusional content of persecutions that are ongoing generally from the [facility]. Patient was admitted overnight. During the next morning during initial interview, patient very calm and pleasant, stating that she feels ready to go home. Patient notably interacting very well with this provider overall and other treatment team staff. Patient reporting that she was "panicked" due to exacerbation and paranoia. Much effort was made to encourage the patient to accept the advice of her outpatient providers, namely mental health providers, regarding any changes in medication. Patient has been on long-term low-dose Haldol. Some tardive like symptomatology present in the perioral area. Patient denies any specific stressors in her life that are identifiable and patient notably interacting very well outside of talking about underlying fixed delusions and persecution. Patient stating her mood was good and very open to treatment, demonstrating no paranoia directed at unit staff members, other patients or any involvement in activity on the Unit. Patient denying any other symptoms. PHYSICAL EXAMINATION Please see emergency room note. Notable for 74-year old female. Overall appears stated age. Well groomed overall with vital signs at time of admission: Temperature 98.8, pulse 66, respiratory rate 18, blood pressure high at 197/93 and pulse oximetry 95% on room air. At time of discharge, vital signs showed temperature 99.0, pulse 72, respiratory rate 16, blood pressure 169/93 and pulse oximetry 91% on room air. LABORATORY DATA Followup CMP on 04/09/2019 indicating sodium and chloride low at 130 and 92, respectively, and beta natriuretic peptide at 92. TSH 2.07 at time of admission. CBC was unremarkable. Urinalysis unremarkable. screen negative and negative toxicology screen. Free of any alcohol as well. MENTAL STATUS EXAM (at time of initial interview and final interview as this is again history and physical and discharge summary) GENERAL APPEARANCE, BEHAVIOR AND ATTITUDE: Overall, well-groomed 74-year-old female who appears stated age, making good eye contact. Wide range in affect. No periods of tearfulness. No grossly bizarre mannerisms or tics. SPEECH: Within normal limits. Regular rate, rhythm, volume and tone. MOOD: Described as good. AFFECT: Full and bright. THOUGHT PROCESSES: Goal-directed. Patient intended to go directly to outpatient provider appointment to discuss further any further changes in medication. No loose associations or flight of ideas. THOUGHT CONTENT: Free of any auditory or visual hallucinations, ideas of reference, thought broadcastings. However, persecutory type delusional content is longstanding in this patient. Please refer to H and P from September admission as well. Patient not having any obsessions or compulsions and adamantly denying any suicidal or homicidal thoughts. SENSORIUM: Clear. COGNITION: Alert and oriented to person, place, time and situation. MEMORY: Immediate, recent and remote was estimated intact. INTELLIGENCE: Average, based on interview. INSIGHT AND JUDGMENT: Considered grossly intact and appropriate for outpatient care. For the rest of mental health history, family and psychiatric history, medical history, social history, legal history and substance abuse history, please see H and P dictated in September 2018. Patient currently following up with Madina Bell NP, for mental health needs and following up with Dr. Yuen and Dr. Elliott for primary care needs. RESULTS OF TESTING Imaging: None. Laboratory data: See above. CONSULTATIONS None. TREATMENT Patient was very well-versed in her own medications and dosing. Patient continued these medications as prescribed during her brief stay on the Unit and did participate in individual and group therapy. HOSPITAL COURSE Patient quickly recovered after brief overnight stay for exacerbation of paranoia on the Unit. Much effort was made to ensure patient would heed the advice of outpatient providers regarding potential changes in outpatient psychiatric meds. Patient giving no evidence of paranoia and stated she would take this into consideration. Patient again very bright, well-versed on her medications and dosing. CONDITION OF PATIENT ON DISCHARGE Stable. Considered a minimal risk to herself or others and appropriate for outpatient care. DISPOSITION The patient was discharged directly to outpatient appointment and be brought there. Patient would follow up with [facility] as well, take medications as prescribed. Given the Crisis Line should symptoms return. MEDICATIONS AT TIME OF DISCHARGE 1. Avapro 150 mg at bedtime. 2. Cardizem CD 240 mg every morning. 3. Cardizem CD 180 mg at 1700. 4. Ecotrin low-strength aspirin 81 mg b.i.d. 5. Haldol 2.5 mg every morning. 6. Haldol 7.5 mg at bedtime. 7. Calcium and vitamin D3 supplement every morning. 8. Protonix 40 mg at lunch. 9. Sodium chloride tablets 1 gram b.i.d. at 0800 and 1200 hours. 10. Multivitamin with minerals daily. 11. Toprol XL 50 mg at lunch. 12. Tylenol 1000 mg daily at 0800 and 1200. 13. Zyrtec 10 to 20 mg p.o. b.i.d. at 0800 and 1200 hours. 14. Cough drops. 15. Natural Balance Tears. 16. [place] nasal spray as needed. The Crisis Line was given should symptoms return. The risks, benefits and alternatives of the above discharge plan were discussed. Informed consent was given to proceed with the above discharge plan by this cooperative and competent patient and outpatient providers. ЮЛИЯ
== END 2019-04-09 12:58 | disposition home or self-care (01) | DRG 885 ==
LOC: BHS 18:08
PROVIDERS: ADMIT Psychiatry & Neurology Psychiatry; ATTEND Psychiatry & Neurology Psychiatry
DX: F20.9 Schizophrenia, unspecified (principal); Z96.653 Presence of artificial knee joint, bilateral
CPT/HCPCS: 36415; 82040; 82247; 82310; 82374; 82435; 82565; 82947; 83880; 84075; 84132; 84155; 84295; 84450; 84460; 84520

== ENCOUNTER → 2019-05-01 | Outpatient (CLI) | payer MEDICARE ==
[~2019-05-01] MED LIST changes: +MENT7.5L3 MM; +OXYM30MI5 NS
--- NOTE | 2019-05-01 11:00 | RADIOLOGY IMAGING REPORT ---
FACILITY: [facility] PATIENT NAME: Radha Zuniga : 1945 MR: [id number] V: [id number] EXAM DATE: ORDERING PHYSICIAN: ALFREDA MEJIA TECHNOLOGIST: Location: [facility] Patient: Radha Zuniga : 1945 Visit/Account:[id number] Date of Sevice: 05/01/2019 CT CHEST W/O CONTRAST History: Solitary pulmonary nodule, patient states five radiation treatments as of today TECHNIQUE: Contiguous axial images were performed through the chest to the level of the adrenal gla nds. No IV contrast was administered. Coronal and sagittal reformatting was also performed.Dose Lower ing Technique One of the following dose optimization techniques was utilized in the performance of this exam: Autom ated exposure control; adjustment of the mA and/or kV according to the patient's size; or use of an i terative reconstruction technique. Specific details can be referenced in the facility's radiology C T exam operational policy. COMPARISON STUDIES: November 03, 2018. Lungs / Pleura: Previously noted spiculated mass in the left upper lobe now measures 2.2 x 0.7 x 1 cm previously measuring 1.6 x 1.2 x 1.9 cm. There is less of a cavitary component. There is linear stranding towards the anterolateral pleural margin which appears thickened and slightly more so when compared the prior study. There is surrounding interstitial consolidation slightly more prominent In the lateral left lower lobe is a 4 mm nodule with fibrotic stranding towards the lateral pleural m argin best appreciated on image 143 of series 4 that appears more prominent when compared to the prio r study previously measuring 2 mm Mediastinum/nodes: There is a calcified left hilar node Heart and vessels: negative. Musculoskeletal / Body wall: S-shaped scoliosis of the thoracic spine with spondylotic changes Upper abdomen: Calcified granulomas in the liver and spleen. Postsurgical changes from a cholecyst ectomy IMPRESSION: Left upper lobe spiculated nodule with fibrotic stranding towards the thickened anterolateral pleura now measures 2.2 x 0.7 x 1 cm as opposed to 1.9 x 1.6 x 1.2 cm. The overall dimensions appear to hav e decreased. There appears to be less of a cavitary component. The patient gives a clinical history of five radiation treatments. Suggesting this is a proven malignancy. If this is in fact true ther e appears to have been a partial response to treatment. There is a large calcified left hilar lymph node and calcified granulomas in the liver and spleen suggesting prior granulomatous process. TB wou ld be included in the differential diagnosis if the diagnosis of malignancy has not been demonstrated . In the left lower lobe there is a 4 mm nodule fibrotic stranding towards the lateral pleural margin i s slightly increased when compared the prior study short-term interval follow-up recommended Report Dictated By: Renetta Rosenthal MD at 05/01/2019 10:16 AM Report E-Signed By: Renetta Rosenthal MD at 05/01/2019 10:51 AM WSN:[id number]
== END ==
LOC: CT 01:56
PROVIDERS: ATTEND Family Medicine
DX: R91.1 Solitary pulmonary nodule (principal)
CPT/HCPCS: 71250

== ENCOUNTER → 2019-05-04 | Outpatient (CLI) | payer MEDICARE | LOC: LAB 10:09 | PROVIDERS: ATTEND Family Medicine | DX: R91.1 Solitary pulmonary nodule (principal) | CPT/HCPCS: 36415; 86480 ==

== ENCOUNTER 2019-05-08 12:55 | Emergency (ER) | payer MEDICARE ==
--- NOTE | 2019-05-08 12:58 | ER Report ---
History and Physical Time Seen By MD: 12:54 HPI/ROS CHIEF COMPLAINT: Chest pain HISTORY OF PRESENT ILLNESS: Patient is a 74-year-old female here with complaints of midsternal chest pain with radiation to the left breast which started this morning a little before 8:00 per patient report. Patient reports having a prior history of myocardial infarction and was concerned that she was having a heart attack. Pain has been constant since time of onset. Patient did take 9 aspirin prior to arrival. She reports taking all her medications as prescribed. She does have a history of schizophrenia and does report taking her medications currently. Patient is afebrile, hemodynamically stable at time of evaluation. REVIEW OF SYSTEMS: Constitutional: No fever, no chills. Eyes: No discharge. ENT: No sore throat. Cardiovascular: + Midsternal chest pain, no palpitations. Respiratory: No cough, no shortness of breath. Gastrointestinal: No abdominal pain, no vomiting. Genitourinary: No hematuria. Musculoskeletal: No back pain. Skin: No rashes. Neurological: No headache. Allergies: Coded Allergies: TAWNYA Inhibitors (Verified Allergy, Intermediate, 04/08/19) Penicillins (Verified Allergy, Intermediate, 04/08/19) Sulfa (Sulfonamide Antibiotics) (Verified Allergy, Intermediate, 04/08/19) canola oil (Verified Allergy, Intermediate, 04/08/19) levofloxacin (Verified Allergy, Intermediate, 04/08/19) lurasidone (Verified Allergy, Intermediate, 04/08/19) milk (Verified Allergy, Intermediate, 04/08/19) Uncoded Allergies: ANTIHISTAMINES (Allergy, Intermediate, 10/11/18) "STRONG ANTIHISTAMINES" Home Meds Reported Medications Oxymetazoline Hcl (NASAL SPRAY) 30 Ml Mist, 30 ML NS PRN PRN for DISCOMFORT 04/09/19 Menthol ([place]) 7.5 Mg Lozenge, 1 MAYCO MM PRN PRN for COUGH 04/09/19 Metoprolol Succinate (METOPROLOL SUCCINATE) 50 Mg Tab.er.24h, 1 TAB PO QDAY, TAB 11/19/18 Irbesartan (IRBESARTAN) 150 Mg Tablet, 150 MG PO QDAY 11/19/18 Diltiazem Hcl (CARTIA XT) 180 Mg Cap.er.24h, 180 MG PO QHS 11/19/18 Diltiazem Hcl (CARTIA XT) 240 Mg Cap.er.24h, 240 MG PO QAM 11/19/18 Acetaminophen (TYLENOL EXTRA STRENGTH) 500 Mg Tablet, 1000 MG PO BID, TAB Pt. states she takes 2 tabs QAM and noon 10/12/18 Carboxymethylcellulose Sodium (REFRESH TEARS) 15 Ml Drops, 1-2 DROP OU PRN 10/12/18 Multivitamins-Min/Fa/Ginkgo (ONE DAILY WOMEN 50 PLUS TAB) 1 Each Tablet, 1 EACH PO QDAY 10/12/18 Calcium Carbonate/Vitamin D3 (CALCIUM + VITAMIN D TABLET) 1 Each Tablet, 1 EACH PO QDAY 10/12/18 Cetirizine Hcl (ZYRTEC) 10 Mg Capsule, 1-2 TAB PO QDAY for prn, CAPSULE 10/11/18 Aspirin (ASPIR 81) 81 Mg Tablet.dr, 81 MG PO QDAY, TAB 10/11/18 Sodium Chloride (SODIUM CHLORIDE) 1 Gm Tab, 1 GM PO BID, TAB 10/11/18 Haloperidol (HALOPERIDOL) 5 Mg Tablet, 5 MG PO QDAY PT. takes 2.5mg tab in the morning. Takes 7.5mg at bedtime. 10/11/18 Omeprazole (OMEPRAZOLE) 20 Mg Capsule.dr, 2 CAP PO QDAY, CAP 10/11/18 Hx Smoking: No Smoking Status: Never Smoker Exposure to Second Hand Smoke?: No Hx Substance Use Disorder: No Hx Alcohol Use: No Constitutional Vital Sign - Last 24 Hours 05/08/19 13:01 Temp 97.6 Pulse 63 Resp 24 B/P (MAP) 203/99 Pulse Ox 94 O2 Delivery Room Air Physical Exam General Appearance: The patient is alert, has no immediate need for airway protection and no signs of toxicity. anxious appearing Eyes: Pupils equal and round no pallor or injection. ENT, Mouth: Mucous membranes are moist. Respiratory: There are no retractions, lungs are clear to auscultation. Cardiovascular: Regular rate and rhythm. Gastrointestinal: Abdomen is soft and non tender, no masses, bowel sounds normal. Neurological: No focal neuro deficits Skin: Warm and dry, no rashes. Musculoskeletal: Neck is supple non tender. Extremities are nontender, nonswollen and have full range of motion. DIFFERENTIAL DIAGNOSIS: After history and physical exam differential diagnosis was considered for chest pain including but not limited to myocardial ischemia, pericarditis pulmonary embolus, chest wall pain, pleural inflammation and pulmonary infectious causes. Medical Decision Making Data Points Result Diagram: 05/08/19 1259 05/08/19 1259 Laboratory Hematology Test 05/08/19 12:59 White Blood Count 8.2 k/uL (4.5-11.0) Red Blood Count 4.72 M/uL (4.17-5.56) Hemoglobin 15.3 g/dL (12.0-16.0) Hematocrit 43.1 % (34.0-47.0) Mean Corpuscular Volume 91.3 fL (80.0-96.0) Mean Corpuscular Hemoglobin 32.4 pg (26.0-33.0) Mean Corpuscular Hemoglobin Concent 35.5 g/dL (32.0-36.0) Red Cell Distribution Width 12.8 % (11.5-14.5) Platelet Count 338 K/uL (150-450) Mean Platelet Volume 7.5 fL (7.2-11.1) Neutrophils (%) (Auto) 60.6 % (39.4-72.5) Lymphocytes (%) (Auto) 27.5 % (17.6-49.6) Monocytes (%) (Auto) 9.0 % (4.1-12.4) Eosinophils (%) (Auto) 1.7 % (0.4-6.7) Basophils (%) (Auto) 1.2 % (0.3-1.4) Nucleated RBC Relative Count (auto) 0.1 /100WBC Neutrophils # (Auto) 5.0 K/uL (2.0-7.4) Lymphocytes # (Auto) 2.3 K/uL (1.3-3.6) Monocytes # (Auto) 0.7 K/uL (0.3-1.0) Eosinophils # (Auto) 0.1 K/uL (0.0-0.5) Basophils # (Auto) 0.1 K/uL (0.0-0.1) Nucleated RBC Absolute Count (auto) 0.01 K/uL Chemistry Test 05/08/19 12:59 Sodium Level 127 mmol/L (137-145) Potassium Level 3.6 mmol/L (3.5-5.0) Chloride Level 86 mmol/L (98-107) Carbon Dioxide Level 28 mmol/L (22-31) Blood Urea Nitrogen 11 mg/dl (7-18) Creatinine 0.70 mg/dl (0.52-1.04) Glomerular Filtration Rate Calc > 60.0 Random Glucose 99 mg/dl (75-110) Calcium Level 9.1 mg/dl (8.4-10.2) Total Bilirubin 0.4 mg/dl (0.2-1.3) Aspartate Amino Transf (AST/SGOT) 27 U/L (0-35) Alanine Aminotransferase (ALT/SGPT) 36 U/L (0-56) Alkaline Phosphatase 132 U/L (0-126) Troponin I < 0.012 ng/ml B-Type Natriuretic Peptide 78 pg/ml (0-100) Total Protein 7.5 g/dl (6.3-8.2) Albumin 4.5 g/dl (3.5-5.0) Coagulation Test 05/08/19 12:59 Prothrombin Time 12.9 seconds (12.0-14.4) Prothromb Time International Ratio 0.97 Activated Partial Thromboplast Time 36 seconds (23-35) EKG/Imaging EKG Interpretation 12 lead EKG: Normal sinus rhythm with first-degree AV block and ventricular rate 61 QTC 444, no ischemic changes or arrhythmias Rhythm: normal sinus rhythm [place]: normal QRS: normal ST segments: normal Imaging FACILITY: [facility] PATIENT NAME: Radha Zuniga : 1945 MR: [id number] V: [id number] EXAM DATE: ORDERING PHYSICIAN: CALLI CONTRERAS TECHNOLOGIST: Location: [facility] Patient: Radha Zuniga : 1945 Visit/Account:[id number] Date of Sevice: 05/08/2019 CHEST SINGLE AP 05/08/2019 12:59 hours. HISTORY: Chest pain. COMPARISON: 02/08/2019 and studies dating to 11/03/2018. TECHNIQUE: Portable AP view of the chest. FINDINGS: TUBES/LINES/HARDWARE: There are external chest leads. PULMONARY/PLEURA: Right lung is clear. There are stable linear and more focal opacities in the left upper lobe that are stable from 02/08/2019. The more focal left upper lobe opacity has improved since 11/18/2018. No new process. There is no pneumothorax or pleural effusion. CARDIOMEDIASTINAL: Cardiac and mediastinal silhouettes are within normal limits. There is mild aortic calcification. There are calcified left hilar lymph nodes, unchanged, compatible with prior granulomatous disease. BONES/SOFT TISSUES: No acute osseous abnormality. The visible abdomen is normal. IMPRESSION: 1. Stable appearance of the chest since 02/08/2019 without acute process. Report Dictated By: Fabienne Ivey at 05/08/2019 1:33 PM Report E-Signed By: Fabienne Ivey at 05/08/2019 1:37 PM WSN:[id number] ED Course/Re-evaluation ED Course Patient is a 74-year-old female here with complaints of chest pain which is been present persistently since a little before 8:00 this morning. Being that her ch est pain was greater than 4 hours and troponin was negative, repeat troponin was not indicated at this time. EKG showed no ischemic findings. I did discuss with the patient that her sodium levels were persistently low and will need to be followed up on with her PCP. Patient was given Ativan 1 mg the patient reported having significant improvement in her symptoms. Patient labs were otherwise unremarkable. Chest x-ray showed no acute findings. Patient was updated regarding these findings and she voiced understanding. Recommend close follow-up with her PCP and psychiatrist. Return precautions provided. Decision to Disposition Date: May 08, 2019 Decision to Disposition Time: 14:27 Depart Departure Latest Vital Signs Vital Signs Date Time Temp Pulse Resp B/P (MAP) Pulse Ox O2 Delivery O2 Flow Rate FiO2 05/08/19 13:01 97.6 63 24 203/99 94 Room Air Impression: Primary Impression: Chest pain Condition: Improved Disposition: HOME OR SELF-CARE Referrals: ALFREDA MEJIA MD (PCP) Patient Instructions: Chest Pain (ED) Additional Instructions: Please drink plenty of water. Today it does not appear that you are having a heart attack. Your cardiac enzymes, chest x-ray, EKG all came back normal. Please follow up closely with your primary care provider in the next 24-48 hours for repeat evaluation. Please return promptly if you develop worsening symptoms, shortness of breath, fevers or chills, nausea, vomiting. CALLI CONTRERAS DO May 08, 2019 12:58
[2019-05-08] MEDS ORDERED: LORazepam 2 MG/ML VIAL IVP ONE (13:15)
[2019-05-08] MEDS ORDERED: NS(*) 0.9% 1000 ML BAG 1,000 ML IV ONE (13:15)
[2019-05-08 13:21] LABS: PLATELET COUNT, AUTOMATED 338 K/uL (150-450)
[2019-05-08 13:44] LABS: INR 0.97
--- NOTE | 2019-05-08 13:44 | RADIOLOGY IMAGING REPORT ---
FACILITY: [facility] PATIENT NAME: Radha Zuniga : 1945 MR: [id number] V: [id number] EXAM DATE: ORDERING PHYSICIAN: CALLI CONTRERAS TECHNOLOGIST: Location: [facility] Patient: Radha Zuniga : 1945 Visit/Account:[id number] Date of Sevice: 05/08/2019 CHEST SINGLE AP 05/08/2019 12:59 hours. HISTORY: Chest pain. COMPARISON: 02/08/2019 and studies dating to 11/03/2018. TECHNIQUE: Portable AP view of the chest. FINDINGS: TUBES/LINES/HARDWARE: There are external chest leads. PULMONARY/PLEURA: Right lung is clear. There are stable linear and more focal opacities in the left u pper lobe that are stable from 02/08/2019. The more focal left upper lobe opacity has improved since . No new process. There is no pneumothorax or pleural effusion. CARDIOMEDIASTINAL: Cardiac and mediastinal silhouettes are within normal limits. There is mild aortic calcification. There are calcified left hilar lymph nodes, unchanged, compatible with prior granulom atous disease. BONES/SOFT TISSUES: No acute osseous abnormality. The visible abdomen is normal. IMPRESSION: 1. Stable appearance of the chest since 02/08/2019 without acute process. Report Dictated By: Fabienne Ivey at 05/08/2019 1:33 PM Report E-Signed By: Fabienne Ivey at 05/08/2019 1:37 PM WSN:[id number]
[2019-05-08 14:10] VITALS: BP 161/113
--- NOTE | 2019-05-08 14:57 | EKG ---
FACILITY: [facility] PATIENT NAME: RAFAT RODRIGUEZ : [id number] MR: [id number] V: [id number] EXAM DATE: ORDERING PHYSICIAN: CALLI CONTRERAS TECHNOLOGIST: JORDAN Mak Reason : CARDIAC Blood Pressure : / mmHG Vent. Rate : 061 BPM Atrial Rate : 061 BPM P-R Int : 240 ms QRS Dur : 104 ms QT Int : 442 ms P-R-T Axes : 071 -05 059 degrees QTc Int : 444 ms Sinus rhythm with 1st degree AV block Borderline left axis Nonspecific T wave abnormality Abnormal ECG Confirmed by RUBIO ABEBE ([id number] on 05/09/2019 5:33:59 AM Referred By: Confirmed By:RUBIO ABEBE
== END 2019-05-08 14:41 | disposition home or self-care (01) ==
LOC: ER 13:02
DX: R07.9 Chest pain, unspecified (principal)
CPT/HCPCS: 71045; 83880; 84484; 85025; 85610; 85730; 96361; 96374; 99284; J2060; J7030; 82040; 82247; 82310; 82374; 82435; 82565; 82947; 84075; 84132; 84155; 84295; 84450; 84460; 84520